=== PATIENT | female | born 1950 | race Caucasian/White ===

== ENCOUNTER → 2016-12-06 | Outpatient (CLI) | payer OTHER ==
[~2016-12-06] MED LIST: ATV5 PO; BROM0.0911 OPL; CALC500C3 PO; IBUP-1050 PO; PRED1SUS3 OPL; TIMO0.05 OPB
--- NOTE | 2016-12-06 10:42 | DIAGNOSTIC IMAGING REPORT ---
ABDOMEN COMPLETE (US) CLINICAL HISTORY: EPIGASTRIC PAIN; CHANGE IN BOWEL HABIT COMPARISON STUDY: No previous studies for comparison. FINDINGS: Evaluation the pancreas is limited. No definite pancreatic abnormalities are identified. There is 8 mm cyst within the right hepatic lobe. The liver appears otherwise normal. The gallbladder surgically absent. There is no ductal dilatation. The common bile duct measures 4 mm. The spleen measures 8.3 cm in length. No splenic masses are visualized. The right kidney measures 9.2 cm in length. The left kidney measures 9.6 cm in length. No renal masses were visualized. There is no hydronephrosis. There is no evidence of abdominal aortic dilatation. Inferior vena cava appear patent. IMPRESSION: 1. 8 mm right lobe hepatic cyst 2. Surgically absent gallbladder 3. No evidence of ductal dilatation. Electronically signed by: Bong Ponce M.D. 12/06/2016 10:41 AM Dictated Date/Time: 12/06/2016 10:39 AM
== END | disposition home or self-care (01) ==
LOC: C.ULTRBC 09:41
PROVIDERS: ATTEND Family Medicine
DX: R19.4 Change in bowel habit (principal); R10.13 Epigastric pain; Z92.3 Personal history of irradiation; K76.89 Other specified diseases of liver; Z90.49 Acquired absence of other specified parts of digestive tract

== ENCOUNTER → 2016-12-29 | Outpatient (CLI) | payer OTHER ==
[~2016-12-29] MED LIST changes: +OPTIRAY 320 IV PRN
[2016-12-29 11:41] LABS: HEMATOCRIT 43.8 % (37-47); MEAN CELL VOLUME 91.8 fL (80-100); MEAN CORPUSCULAR HEMOGLOBIN 30.6 pg (25-34); MEAN CORPUSCULAR HGB CONC 33.3 g/dl (32-36); MEAN PLATELET VOLUME 9.6 fL (7.4-10.4); PLATELET COUNT 292 K/uL (130-400); RED BLOOD COUNT 4.77 M/uL (4.2-5.4); WHITE BLOOD COUNT 5.24 K/uL (4.8-10.8)
[2016-12-29 12:08] LABS: ALB/GLOB RATIO 0.9 (0.9-2); ALKALINE PHOSPHATASE 132 U/L (45-117); ALT/SGPT 28 U/L (12-78); AST/SGOT 20 U/L (15-37); BLOOD UREA NITROGEN 18 mg/dl (7-18); BUN/CREATININE RATIO 24.4 (10-20); CALCIUM 9.5 mg/dl (8.5-10.1); CARBON DIOXIDE 29 mmol/L (21-32); CHLORIDE 107 mmol/L (98-107); CREATININE 0.73 mg/dl (0.60-1.20); GLUCOSE 95 mg/dl (70-99); SODIUM 141 mmol/L (136-145)
--- NOTE | 2016-12-29 12:44 | DIAGNOSTIC IMAGING REPORT ---
CT SCAN OF THE CHEST, ABDOMEN, AND PELVIS WITH IV CONTRAST CLINICAL HISTORY: Colon cancer. COMPARISON STUDY: Chest x-ray dated 09/23/2008. Abdominal ultrasound dated 12/06/2016. TECHNIQUE: Following the IV administration of 90 of Optiray 320, CT scan of the chest, abdomen, and pelvis was performed from the thoracic inlet to the proximal femora. Images are reviewed in the axial, sagittal, and coronal planes. IV contrast was administered without complication. Automated dose control exposure was utilized. CT DOSE: 895.49 mGy.cm FINDINGS: CHEST: Thyroid: Imaged portions of the thyroid gland are normal in size and attenuation. Thoracic aorta: The thoracic aorta is normal in caliber and demonstrates standard 3-vessel arch anatomy. No dissection is seen. Pulmonary vasculature: The pulmonary trunk is normal in caliber. There are no filling defects identified in the central pulmonary vessels to indicate pulmonary was. Note that this examination was not protocoled for evaluation of the pulmonary arteries. Heart: The heart is normal in size and configuration, and without pericardial effusion. There are scattered coronary artery calcifications. Lungs and pleural spaces: The lungs and pleural spaces are clear noting minimal bibasilar atelectasis. The trachea and central airways are patent. Mediastinum: There is no mediastinal lymphadenopathy. Alba: Clear. Axillae: There is no axillary lymphadenopathy. Bony thorax: The skeletal structures are osteopenic. No lytic or blastic lesions are identified. ABDOMEN AND PELVIS: Liver: The contrast-enhanced liver is normal in size, contour, and attenuation. There is no intrahepatic or ductal dilatation. The hepatic veins and portal veins are patent. Scattered subcentimeter hepatic hypodensities likely represent cysts but are too small for definitive characterization. Gallbladder: Surgically absent noting clips in the gallbladder fossa. Spleen: Normal in size and attenuation. Pancreas: Moderately atrophic and grossly unremarkable. Adrenal glands: Unremarkable. Kidneys: The contrast enhanced kidneys demonstrate mild cortical atrophy and are without hydronephrosis. The kidneys enhance symmetrically. Abdominal vasculature: The abdominal aorta is normal in course and caliber noting mild to moderate atherosclerotic calcification. Stomach and bowel: There is a large hiatal hernia, with the majority of the stomach located in the thoracic cavity. The duodenum is normal in configuration. There is no bowel obstruction. There is mild to moderate sigmoid diverticulosis without CT evidence of acute diverticulitis. The appendix is well-visualized and normal. Peritoneum: There is no intraperitoneal free air or abdominal ascites. There is a small fat-containing umbilical hernia. Lymphadenopathy: None. Pelvic viscera: The bladder is normal as visualized. The uterus is surgically absent. No adnexal lesion is seen. Surgical clips are present within the adnexa bilaterally. Skeletal structures: The skeletal structures are osteopenic. There is mild to moderate lumbosacral spondylosis. Grade 1 anterolisthesis is seen at L4-L5. No lytic or blastic lesions are seen. IMPRESSION: 1. There is no evidence of metastatic disease in the chest, abdomen, or pelvis. 2. The lungs are clear. 3. The patient's reported colon lesion is not visualized by CT. 4. Sigmoid diverticulosis without CT evidence of acute diverticulitis. 5. Large hiatal hernia with the majority of the stomach located in the thoracic cavity. 6. Additional findings as above. Electronically signed by: Anderson Gonzalez M.D. 12/29/2016 12:43 PM Dictated Date/Time: 12/29/2016 12:32 PM
== END | disposition home or self-care (01) ==
LOC: C.CTS 10:03
PROVIDERS: ATTEND Internal Medicine Gastroenterology
DX: C18.9 Malignant neoplasm of colon, unspecified (principal)

== ENCOUNTER → 2017-06-15 | Outpatient (CLI) | payer OTHER ==
[~2017-06-15] MED LIST changes: -OPTIRAY 320 IV PRN
[2017-06-15 17:42] LABS: HEMATOCRIT 42.3 % (37-47); MEAN CELL VOLUME 93.6 fL (80-100); MEAN CORPUSCULAR HGB CONC 33.1 g/dl (32-36); MEAN PLATELET VOLUME 9.8 fL (7.4-10.4); PLATELET COUNT 256 K/uL (130-400); RED BLOOD COUNT 4.52 M/uL (4.2-5.4); WHITE BLOOD COUNT 6.21 K/uL (4.8-10.8)
[2017-06-15 18:09] LABS: ALT/SGPT 37 U/L (12-78); BLOOD UREA NITROGEN 16 mg/dl (7-18); BUN/CREATININE RATIO 29.3 (10-20); CALCIUM 9.1 mg/dl (8.5-10.1); CARBON DIOXIDE 28 mmol/L (21-32); CHLORIDE 104 mmol/L (98-107); CREATININE 0.54 mg/dl (0.60-1.20); GLUCOSE 90 mg/dl (70-99); POTASSIUM 3.8 mmol/L (3.5-5.1); SODIUM 138 mmol/L (136-145)
[2017-06-15 18:20] LABS: ALB/GLOB RATIO 0.9 (0.9-2); ALKALINE PHOSPHATASE 124 U/L (45-117); AST/SGOT 26 U/L (15-37)
== END | disposition home or self-care (01) ==
LOC: C.LAB1850 17:00
PROVIDERS: ATTEND Family Medicine
DX: L65.9 Nonscarring hair loss, unspecified (principal); C18.7 Malignant neoplasm of sigmoid colon

== ENCOUNTER 2021-02-03 12:11 | Inpatient (IN) ==
[2021-02-03 15:12] LABS: Eosinophils # (auto) 0.01 K/uL (0-0.5); Eosinophils % (auto) 0.3 %; Hematocrit (blood only) 38.8 % (37-47); Hemoglobin 11.3 g/dL (12.0-16.0); Lymphocytes # (auto) 0.65 K/uL (1.2-3.4); Lymphocytes % (auto) 18.2 %; Mean Corpuscular Hemoglobin 20.5 pg (25-34); Mean Corpuscular Hgb Conc 29.1 g/dL (32-36); Mean Corpuscular Volume 70.4 fL (80-100); Monocytes # (auto) 0.51 K/uL (0.11-0.59); Monocytes % (auto) 14.2 %; Neutrophils # (auto) 2.41 K/uL (1.4-6.5); Neutrophils % (auto) 67.3 %; Platelet Count 451 K/uL (130-400); RDW Coefficient of Variation 20.2 % (11.5-14.5); RDW Standard Deviation 51.7 fL (36.4-46.3); Red Blood Count 5.51 M/uL (4.2-5.4); White Blood Count 3.58 K/uL (4.8-10.8)
[2021-02-03] MEDS ORDERED: ONDANSETRON INJ 2 MG/ML 2 ML VIAL IV STA (15:20)
[2021-02-03] MEDS: SODIUM CHLORIDE 0.9% 1000ML 1,000 ML IV SCH ×2 (15:26→23:08)
[2021-02-03 15:32] LABS: Alanine Aminotransferase 26 U/L (12-78); Albumin Level 3.6 gm/dl (3.4-5.0); Aspartate Aminotransferase 18 U/L (15-37); BUN Creatinine Ratio 22.5 (10-20); Blood Urea Nitrogen 19 mg/dl (7-18); Calcium 9.5 mg/dl (8.5-10.1); Carbon Dioxide 24 mmol/L (21-32); Chloride 105 mmol/L (98-107); Creatinine Clr Calc Pharmacy 59.2 ml/min; Est GFR (African American) 82.2 ml/min; Est GFR (Non-African American) 70.9 ml/min; Glucose 142 mg/dl (70-99); Lipase 63 U/L (73-393); Sodium 137 mmol/L (136-145)
--- NOTE | 2021-02-03 15:34 | Electrocardiogram Report ---
Test Reason : Blood Pressure : / mmHG Vent. Rate : 085 BPM Atrial Rate : 085 BPM P-R Int : 146 ms QRS Dur : 068 ms QT Int : 376 ms P-R-T Axes : 043 -20 047 degrees QTc Int : 447 ms Normal sinus rhythm Normal ECG When compared with ECG of 20-SEP-2006 18:42, No significant change was found Confirmed by Chad Ledesma ([id number]) on 02/03/2021 3:34:28 PM Referred By: REFERRED SELF Confirmed By:Chung Ledesma
[2021-02-03 15:36] LABS: Albumin Globulin Ratio 0.7 (0.9-2); Alkaline Phosphatase 153 U/L (45-117); Bilirubin,Total 1.3 mg/dl (0.2-1); Globulin 5.1 gm/dl (2.5-4.0); Phosphorus 2.6 mg/dl (2.5-4.9); Total Protein 8.7 gm/dl (6.4-8.2); Troponin I < 0.015 ng/ml (0-0.045)
[2021-02-03 15:50] LABS: Anisocytosis Present; Hypochromasia Present; Poikilocytosis Present; Polychromasia 1+
--- NOTE | 2021-02-03 15:51 | Emergency Department Note ---
History of Present Illness General Chief complaint: Diarrhea Stated complaint: DIARRHEA,CANT KEEP ANYTHING DOWN,LOWER ABD PAIN Time Seen by Provider: 02/03/21 14:15 Source: patient Mode of arrival: ambulatory Limitations: no limitations History of Present Illness Provider complaint: weakness, dehydration, vomiting Onset (ago): day(s) 4 Location: abdomen Radiation: non-radiation Severity: moderate Maximum Pain Intensity: 5 Quality: + constant Relieved By: + none Exacerbated By: + eating Associated symptoms: + loss of appetite, + malaise, + nausea/vomiting and + weakness This is a 70-year-old female presents emergency department complaining of abdominal pain, nausea, vomiting, and diarrhea. Patient states symptoms began on Tuesday. Patient states last week on Tuesday she underwent an EGD and sigmoidoscopy by Dr. Driver. Patient has a prior history of colon cancer and ileocolectomy remotely. Patient states following the procedure on Tuesday she had decreased p.o. intake and felt fatigued but did not have pain until she ate a larger meal on Tuesday. She states she frequently has diarrhea due to her prior surgery although the diarrhea has been more persistent and more watery over the last several days. She denies noting any black or bloody stools. She denies fevers or chills. Patient states over the last 3 days she has been unable to tolerate anything by mouth. Patient denies any recent change in medication or diet otherwise. No known sick contacts. Patient states pain in her abdomen feels central and is constant. Patient has not noticed any significant abdominal distention. Patient states she did tolerate a banana this morning which was the first thing she is kept down 3 days. She did have 2 episodes of diarrhea on arrival here. Pt seen during a time of high acuity and national emergency pandemic while wearing PPE. Home Medications Medication Instructions Recorded Confirmed Type cholestyramine (with sugar) 4 gram 1 ea PO QAM 02/03/21 02/03/21 History powder for susp in a packet lorazepam 1 mg tablet 1 mg PO TID PRN 02/03/21 02/03/21 History naproxen sodium 220 mg tablet 220 mg PO Q12H PRN 02/03/21 02/03/21 History (Aleve) timolol maleate 0.5 % eye drops 1 drp OPB DAILY 02/03/21 02/03/21 History Allergies Allergy/AdvReac Type Severity Reaction Status Date / Time codeine Allergy Severe SHORTNESS Verified 02/03/21 14:57 OF BREATH morphine Allergy Severe SHORTNESS Verified 02/03/21 14:57 OF BREATH benzalkonium chloride AdvReac Mild EYE Verified 02/03/21 14:57 IRRITATION AND REDNESS chocolate flavor AdvReac Mild causes Verified 02/03/21 14:57 sneezing travoprost AdvReac Mild EYE Verified 02/03/21 14:57 IRRITATION AND REDNESS Past Med/Surg History Surgical History H/O section H/O: hysterectomy History of appendectomy History of bowel resection History of cholecystectomy Social History Smoking Status: Never smoker Hx Alcohol Use: No Hx Substance Use: No Preferred Language: [place] Communication Ability: Effective 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 Beliefs That Will Affect Care: None Current Living Situation: Spouse Feels Safe at Home: Yes Assistive Devices: Glasses Review of Systems A total of 10 systems reviewed and were otherwise negative All systems reviewed & are unremarkable except as noted in HPI & below Physical Exam Vital Signs Vital Signs - 24 hr 02/03/21 12:16 02/03/21 14:39 02/03/21 15:26 Temperature 36.2 C L Temperature Source Temporal Artery Scan Pulse Rate 95 H 77 80 Pulse Rate from SpO2 Sensor 77 80 Respiratory Rate 20 14 24 Respiratory Effort / Characteristics Non-Labored Spontaneous Respiratory Depth Normal Respiratory Pattern Regular Blood Pressure 117/87 144/97 H Blood Pressure Mean 97 152 112 Pulse Oximetry 97 98 98 Oxygen Delivery Method Room Air Sepsis Recent Fever Within 48 Hours No Sepsis New/Unexplained Change in Mental Status No Sepsis Action Taken by Nursing No Action Required 02/03/21 16:31 02/03/21 17:01 Temperature Temperature Source Pulse Rate 84 85 Pulse Rate from SpO2 Sensor 84 84 Respiratory Rate 20 13 Respiratory Effort / Characteristics Respiratory Depth Respiratory Pattern Blood Pressure 154/85 H 148/65 H Blood Pressure Mean 108 92 Pulse Oximetry 98 97 Oxygen Delivery Method Sepsis Recent Fever Within 48 Hours Sepsis New/Unexplained Change in Mental Status Sepsis Action Taken by Nursing GENERAL: alert, well appearing, well nourished, no distress, non-toxic EYE EXAM: normal conjunctiva, PERRL and EOM's grossly intact OROPHARYNX: no exudate, no erythema, lips, buccal mucosa, and tongue normal and mucous membranes are moist NECK: supple, no nuchal rigidity, no adenopathy, non-tender LUNGS: Clear to auscultation. Normal chest wall mechanics, no w/r/r HEART: no murmurs, S1 normal and S2 normal ABDOMEN: abdomen soft, non-tender, normo-active bowel sounds, no masses, no rebound or guarding. Well healed surgical scar. BACK: Back is symmetrical on inspection and there is no deformity, no midline tenderness, no CVA tenderness. SKIN: no rashes and no bruising UPPER EXTREMITIES: upper extremities are grossly normal. FROM, nml pulses b/l. LOWER EXTREMITIES: No pitting edema. FROM, nml pulses b/l. NEURO EXAM: Normal sensorium, cranial nerves II-XII grossly intact, normal speech, no gross weakness of arms, no gross weakness of legs. Gross sensation intact. Course Course 1635: Updated pt on CT findings. 1640: DIsucssed with Delphine Grijalva PA-C with gen surg. 1655: Discussed with Delphine Grijalva PA-C again, would like medicine to admit and NG tube placed. 1715: Discussed with hospitalist. Administered Medications Famotidine 20 mg/ Syringe 5 mls @ 2.5 mls/min IV Q12H ROSAURA Stop: 03/05/21 20:59 Last Admin: 02/03/21 21:32 Dose: 2.5 mls/min Documented by: [id number] Potassium Chloride/Sodium Chloride (Normal Saline W/20 Meq Kcl) 20 meq in 1,000 mls @ 100 mls/hr IV .Q10H ROSAURA Stop: 03/05/21 23:14 Last Admin: 02/03/21 23:56 Dose: 100 mls/hr Documented by: [id number] Ketorolac Tromethamine (Ketorolac Tromethamine 15 Mg/Ml Vial) 15 mg IV Q6H PRN PRN Reason: Moderate Pain Stop: 02/08/21 20:45 Last Admin: 02/03/21 21:46 Dose: 15 mg Documented by: [id number] Discontinued Medications Sodium Chloride (Nss 1000ml) 1,000 mls @ 250 mls/hr IV .Q4H ROSAURA Stop: 03/05/21 14:44 Last Admin: 02/03/21 23:08 Dose: Not Given Documented by: [id number] Infusion: 02/03/21 19:52 Dose: 250 mls/hr Documented by: [id number] Admin: 02/03/21 15:26 Dose: 250 mls/hr Documented by: [id number] Prochlorperazine (Compazine) 1 mls @ 1 mls/min IV ONE ONE Stop: 02/03/21 16:43 Last Admin: 02/03/21 17:04 Dose: 1 mls/min Documented by: [id number] Acetaminophen (Ofirmev) 1,000 mg in 100 mls @ 400 mls/hr IV NOW STA Stop: 02/03/21 17:17 Last Infusion: 02/03/21 17:23 Dose: 400 mls/hr Documented by: [id number] Admin: 02/03/21 17:08 Dose: 400 mls/hr Documented by: [id number] Piperacillin Sod/Tazobactam (Sod 4.5 gm/ Dextrose) 120 mls @ 240 mls/hr IV ONE ONE; Protocol Stop: 02/03/21 21:29 Last Infusion: 02/03/21 22:19 Dose: 0 mls/hr Documented by: [id number] Admin: 02/03/21 21:32 Dose: 240 mls/hr Documented by: [id number] Ondansetron HCl (Ondansetron Inj 2 Mg/Ml 2 Ml Vial) 4 mg IV NOW STA Stop: 02/03/21 15:21 Last Admin: 02/03/21 15:26 Dose: 4 mg Documented by: [id number] Medical Decision Making Differential Diagnosis Differential diagnoses includes but is not limited to gastritis, peptic ulcer disease, GERD, gallbladder disease, pancreatitis, small bowel obstruction, acute coronary syndrome, pericarditis, ischemic bowel, irritable bowel disease, irritable bowel syndrome, appendicitis, diverticulitis, malignancy, hernia, urinary tract infection, torsion, [/ectopic (if female)], perforation, trauma, infectious. Medical Records Attestation: I reviewed the patient's medical records. Home Medications Current Medication List: was personally reviewed by me Laboratory Data Attestation: I reviewed the patient's lab results. Result diagrams: 02/03/21 15:02 02/03/21 15:02 Lab Results 02/03/21 02/03/21 Range/Units 15:02 15:02 WBC 3.58 L (4.8-10.8) K/uL RBC 5.51 H (4.2-5.4) M/uL Hgb 11.3 L (12.0-16.0) g/dL Hct 38.8 (37-47) % MCV 70.4 L (80-100) fL MCH 20.5 L (25-34) pg MCHC 29.1 L (32-36) g/dL RDW Std Deviation 51.7 H (36.4-46.3) fL RDW Coeff of Pavan 20.2 H (11.5-14.5) % Plt Count 451 H (130-400) K/uL MPV 9.0 (7.4-10.4) fL Immature Gran % (Auto) 0.0 % Neut % (Auto) 67.3 % Lymph % (Auto) 18.2 % Carlton % (Auto) 14.2 % Eos % (Auto) 0.3 % Baso % (Auto) 0.0 % Neut # (Auto) 2.41 (1.4-6.5) K/uL Lymph # (Auto) 0.65 L (1.2-3.4) K/uL Carlton # (Auto) 0.51 (0.11-0.59) K/uL Eos # (Auto) 0.01 (0-0.5) K/uL Baso # (Auto) 0.00 (0-0.2) K/uL Immature Gran # (Auto) 0.00 (0.00-0.02) K/uL Polychromasia 1+ Hypochromasia Present Poikilocytosis Present Anisocytosis Present Sodium 137 (136-145) mmol/L Potassium 4.0 (3.5-5.1) mmol/L Chloride 105 (98-107) mmol/L Carbon Dioxide 24 (21-32) mmol/L Anion Gap 8.0 (3-11) BUN 19 H (7-18) mg/dl Creatinine 0.83 (0.6-1.2) mg/dl Est Cr Clr Drug Dosing 59.2 ml/min Est GFR ( Amer) 82.2 ml/min Est GFR (Non-Af Amer) 70.9 ml/min BUN/Creatinine Ratio 22.5 H (10-20) Glucose 142 H (70-99) mg/dl Calcium 9.5 (8.5-10.1) mg/dl Phosphorus 2.6 (2.5-4.9) mg/dl Magnesium 2.0 (1.8-2.4) mg/dl Total Bilirubin 1.3 H (0.2-1) mg/dl AST 18 (15-37) U/L ALT 26 (12-78) U/L Alkaline Phosphatase 153 H (45-117) U/L Troponin I < 0.015 (0-0.045) ng/ml Total Protein 8.7 H (6.4-8.2) gm/dl Albumin 3.6 (3.4-5.0) gm/dl Globulin 5.1 H (2.5-4.0) gm/dl Albumin/Globulin Ratio 0.7 L (0.9-2) Lipase 63 L (73-393) U/L Imaging Data Radiologist's Impression: Abdomen/Pelvis CT 02/03/21 14:48 CT SCAN OF THE ABDOMEN AND PELVIS WITHOUT CONTRAST CLINICAL HISTORY: abd pain, n/v/d COMPARISON STUDY: December 29, 2016 TECHNIQUE: CT scan of the abdomen and pelvis was performed from the lung bases to the proximal femurs. Images are reviewed in the axial, sagittal, and coronal planes. IV contrast was not administered for this examination. A dose lowering technique was utilized adhering to the principles of ALARA. CT DOSE: 542.28 mGy.cm FINDINGS: Lower chest: Large hiatal hernia, slightly worsened since prior with compressive atelectasis of surrounding lung parenchyma. Interval development of 5 mm pulmonary nodule within subpleural aspect of the left lower lobe (09/06) Liver: The unenhanced liver is normal in size, contour, and attenuation. There is no intrahepatic biliary ductal dilatation. Gallbladder: Is surgically absent Spleen: Normal in size and attenuation. Pancreas: Unremarkable. Adrenal glands: Unremarkable. Kidneys: The unenhanced kidneys are normal in size without hydronephrosis. There is no contour deforming renal mass lesion. No renal calculi are identified. Bowel: Status post partial colectomy. Anastomosis is seen within left lower quadrant (3/160) and shows collapsed lumen with proximal diffuse dilatation of the small bowel loops and multiple areas of gas fluid level. Loops of small bowel measure up to 4.5 cm in diameter. Peritoneum: No free intra-abdominal gas is seen. Diffuse mesenteric edema. No evidence of ascites. Vasculature: Abdominal aorta is normal in caliber with scattered calcifications of its wall. Adenopathy: None. Pelvic viscera: Urinary bladder is partially decompressed which limits evaluation. Uterus is surgically absent. Skeletal structures: Mild osteopenia. Multilevel degenerative changes of the spine. Mild anterolisthesis of L4 on L5. IMPRESSION: 1. High-grade small bowel obstruction. Transition zone is seen within site of surgical anastomosis within left lower quadrant. No free intra-abdominal gas or ascites seen however there is diffuse mesenteric edema. Findings will be sent to emergency Department. 2. Large hiatal hernia. 3. Atherosclerosis. 4. Mild anterolisthesis of L4 on L5. 5. Status post hysterectomy. 6. 5 mm pulmonary nodule within left base. Further evaluation with CT of the chest without IV contrast on nonemergency basis is suggested. ACT 112: Positive. There are findings on this exam that require communication between the performing entity and the patient following Patient Test Result Inf ormation Act ([place] Act 112) guidelines. The above report was generated using voice recognition software. It may contain grammatical, syntax or spelling errors. Electronically signed by: Jovita Alan DO 02/03/2021 4:23 PM ECG Data Attestation: I personally reviewed and interpreted this ECG as follows: Indication: + abdominal pain Rate (beats per minute): 85 Rhythm: + normal sinus ECG Intervals/blocks: + Normal QRS and + Normal QT ECG [place]: + Normal ECG ST segments: + Normal ST segments MDM Narrative This is a 70-year-old female with a prior history of ileal colectomy due to colon cancer who presents due to concern for nausea, vomiting, diarrhea, worsening abdominal pain over the last 3 to 4 days. Patient did undergo GI evaluation last week with EGD and sigmoidoscopy which were reassuring. And patient initially felt well until symptoms began Tuesday. Labs reassuring here, however CT imaging revealed a high-grade bowel obstruction. Patient was afebrile here. Patient was also given several medications for nausea as well as medication for pain. Case was discussed with general surgery on-call. They requested an NG tube be placed and the hospitalist admit the patient primarily. Patient was updated on all results and plan after discussion with general surgery at bedside and verbalized understanding. Patient was hemodynamically stable. An order was placed for continuous cardiac monitoring. The monitor shows a rate of _88__ with _normal sinus_ rhythm. Impression & Plan Abdominal pain, Small bowel obstruction, Nausea vomiting and diarrhea Discharge Plan Visit Data Chief Complaint: Diarrhea Stated Complaint: DIARRHEA,CANT KEEP ANYTHING DOWN,LOWER ABD PAIN ED Provider: Vickie Mendiola Discharge Problem: Abdominal pain, Small bowel obstruction, Nausea vomiting and diarrhea Patient Disposition: Admitted As Inpatient Condition: Fair Discharge Instructions Interventions: ED Discharge Assessment Last Done: 02/03/21 20:21
--- NOTE | 2021-02-03 16:24 | CT Scan Report ---
CT SCAN OF THE ABDOMEN AND PELVIS WITHOUT CONTRAST CLINICAL HISTORY: abd pain, n/v/d COMPARISON STUDY: December 29, 2016 TECHNIQUE: CT scan of the abdomen and pelvis was performed from the lung bases to the proximal femurs . Images are reviewed in the axial, sagittal, and coronal planes. IV contrast was not administered fo r this examination. A dose lowering technique was utilized adhering to the principles of ALARA. CT DOSE: 542.28 mGy.cm FINDINGS: Lower chest: Large hiatal hernia, slightly worsened since prior with compressive atelectasis of surro unding lung parenchyma. Interval development of 5 mm pulmonary nodule within subpleural aspect of the left lower lobe (3/13) Liver: The unenhanced liver is normal in size, contour, and attenuation. There is no intrahepatic woo iary ductal dilatation. Gallbladder: Is surgically absent Spleen: Normal in size and attenuation. Pancreas: Unremarkable. Adrenal glands: Unremarkable. Kidneys: The unenhanced kidneys are normal in size without hydronephrosis. There is no contour deform ing renal mass lesion. No renal calculi are identified. Bowel: Status post partial colectomy. Anastomosis is seen within left lower quadrant (3/160) and show s collapsed lumen with proximal diffuse dilatation of the small bowel loops and multiple areas of gas fluid level. Loops of small bowel measure up to 4.5 cm in diameter. Peritoneum: No free intra-abdominal gas is seen. Diffuse mesenteric edema. No evidence of ascites. Vasculature: Abdominal aorta is normal in caliber with scattered calcifications of its wall. Adenopathy: None. Pelvic viscera: Urinary bladder is partially decompressed which limits evaluation. Uterus is surgical ly absent. Skeletal structures: Mild osteopenia. Multilevel degenerative changes of the spine. Mild anterolisthe sis of L4 on L5. IMPRESSION: 1. High-grade small bowel obstruction. Transition zone is seen within site of surgical anastomosis w ithin left lower quadrant. No free intra-abdominal gas or ascites seen however there is diffuse mesen teric edema. Findings will be sent to emergency Department. 2. Large hiatal hernia. 3. Atherosclerosis. 4. Mild anterolisthesis of L4 on L5. 5. Status post hysterectomy. 6. 5 mm pulmonary nodule within left base. Further evaluation with CT of the chest without IV contra st on nonemergency basis is suggested. ACT 112: Positive. There are findings on this exam that require communication between the performing entity and the patient following Patient Test Result Information Act ([place] Act 112) guidelines. The above report was generated using voice recognition software. It may contain grammatical, syntax o r spelling errors. Electronically signed by: Jovita Alan DO 02/03/2021 4:23 PM
[2021-02-03] MEDS ORDERED: PROCHLORPERAZINE 1 ML IV ONE (16:42)
[2021-02-03] MEDS ORDERED: ACETAMINOPHEN 1,000 MG/100 ML VIAL IV STA (17:03)
--- NOTE | 2021-02-03 17:23 | History & Physical Report ---
Date of Service February 03, 2021 Assessment & Plan (1) Small bowel obstruction: Plan: High-grade small bowel obstruction- Transition zone within site of surgical anastomosis within the left lower quadrant Diffuse mesenteric edema noted NPO NG tube to low intermittent suction has been ordered Acetaminophen 1 g IV every 8 hours as needed mild pain or fever Toradol 15 mg IV every 6 hours as needed moderate pain NSS + KCl 20 mEq at 100 mils per hour Famotidine 20 mg IV every 12 hours Zosyn 4.5 g IV every 8 hours General surgical consult History of Present Illness Chief Complaint: The patient presents to the emergency department with 2 days of progressively worsening epigastric and periumbilical abdominal pain with nausea, vomiting and diarrhea Primary Care Provider: Curt Sanches MD The patient is a 70-year-old female with a past medical history including previous bowel surgery, with records not obtainable due to PDF dysfunction. She reports that the pain is gradually worsened over the past 2 days, and when she tries to eat anything resulted in nausea and vomiting. She has had persistent diarrhea during this interval as well. She denies any fevers or chills. Allergies Allergy/AdvReac Type Severity Reaction Status Date / Time codeine Allergy Severe SHORTNESS Verified 02/03/21 14:57 OF BREATH morphine Allergy Severe SHORTNESS Verified 02/03/21 14:57 OF BREATH benzalkonium chloride AdvReac Mild EYE Verified 02/03/21 14:57 IRRITATION AND REDNESS chocolate flavor AdvReac Mild causes Verified 02/03/21 14:57 sneezing travoprost AdvReac Mild EYE Verified 02/03/21 14:57 IRRITATION AND REDNESS Home Medications Medication Instructions Recorded Confirmed Type cholestyramine (with sugar) 4 gram 1 ea PO QAM 02/03/21 02/03/21 History powder for susp in a packet lorazepam 1 mg tablet 1 mg PO TID PRN 02/03/21 02/03/21 History naproxen sodium 220 mg tablet 220 mg PO Q12H PRN 02/03/21 02/03/21 History (Aleve) timolol maleate 0.5 % eye drops 1 drp OPB DAILY 02/03/21 02/03/21 History Past Med/Surg History Social History Smoking Status: Never smoker Preferred Language: Maldivian Feels Safe at Home: Yes Review of Systems Review of Systems: The patient denies chest pain, palpitations, shortness of breath, dyspnea on exertion, cough, lower extremity swelling, sore throat, fevers, chills, sweats, blood in urine or stool, dysuria, urinary frequency or urgency, lightheadedness, dizziness, headache, memory loss, loss of consciousness, rash, abnormal bruising or bleeding, imbalance, focal or generalized weakness, numbness or tingling in arms or legs, generalized arthralgias or myalgias, back or neck pain, or night sweats. The review of systems is otherwise negative other than for that already noted above, and at least 10 systems have been reviewed. Physical Exam Physical Exam: The patient is awake, alert and oriented 3, well developed and well nourished, normocephalic and atraumatic, lying in bed and in mild distress secondary to abdominal discomfort HEENT--PERRL, EOMI, mucous membranes and oropharynx dry. Neck--supple. No JVD. No bruits. Thyroid normal, trachea midline, no adenopathy. Heart--normal S1 and S2. No murmurs, rubs or gallops. Lungs--clear bilaterally, no respiratory distress, no accessory muscle use. Abdomen--absent bowel sounds. Nondistended. Generally tender Extremities--no cyanosis or clubbing. No edema. Dermatologic--normal skin turgor, normal color, no abnormal lymph nodes, no rash. Neurologic--cranial nerves II through XII grossly intact. Rheumatologic--normal range of motion. Psychiatric--normal affect. Results & Data Results & Data ([facility]) Vital Signs (Past 12 Hours) Vital Signs Temp Pulse Resp BP Pulse Ox 02/03/21 12:16 97.2 F L 95 H 20 117/87 97 Laboratory Results Laboratory Results WBC 3.58 K/uL (4.8-10.8) L 02/03/21 15:02 RBC 5.51 M/uL (4.2-5.4) H 02/03/21 15:02 Hgb 11.3 g/dL (12.0-16.0) L 02/03/21 15:02 Hct 38.8 % (37-47) 02/03/21 15: MCV 70.4 fL (80-100) L 02/03/21 15:02 MCH 20.5 pg (25-34) L 02/03/21 15:02 MCHC 29.1 g/dL (32-36) L 02/03/21 15:02 RDW Std Deviation 51.7 fL (36.4-46.3) H 02/03/21 15:02 RDW Coeff of Pavan 20.2 % (11.5-14.5) H 02/03/21 15:02 Plt Count 451 K/uL (130-400) H 02/03/21 15:02 MPV 9.0 fL (7.4-10.4) 02/03/21 15:02 Immature Gran % (Auto) 0.0 % 02/03/21 15:02 Neut % (Auto) 67.3 % 02/03/21 15:02 Lymph % (Auto) 18.2 % 02/03/21 15:02 Weber % (Auto) 14.2 % 02/03/21 15:02 Eos % (Auto) 0.3 % 02/03/21 15:02 Baso % (Auto) 0.0 % 02/03/21 15:02 Neut # (Auto) 2.41 K/uL (1.4-6.5) 02/03/21 15:02 Lymph # (Auto) 0.65 K/uL (1.2-3.4) L 02/03/21 15:02 Weber # (Auto) 0.51 K/uL (0.11-0.59) 02/03/21 15:02 Eos # (Auto) 0.01 K/uL (0-0.5) 02/03/21 15:02 Baso # (Auto) 0.00 K/uL (0-0.2) 02/03/21 15:02 Immature Gran # (Auto) 0.00 K/uL (0.00-0.02) 02/03/21 15:02 Polychromasia 1+ 02/03/21 15:02 Hypochromasia Present 02/03/21 15:02 Poikilocytosis Present 02/03/21 15:02 Anisocytosis Present 02/03/21 15:02 Sodium 137 mmol/L (136-145) 02/03/21 15:02 Potassium 4.0 mmol/L (3.5-5.1) 02/03/21 15:02 Chloride 105 mmol/L (98-107) 02/03/21 15:02 Carbon Dioxide 24 mmol/L (21-32) 02/03/21 15:02 Anion Gap 8.0 (3-11) 02/03/21 15:02 BUN 19 mg/dl (7-18) H 02/03/21 15:02 Creatinine 0.83 mg/dl (0.6-1.2) 02/03/21 15:02 Est Cr Clr Drug Dosing 59.2 ml/min 02/03/21 15:02 Est GFR ( Amer) 82.2 ml/min 02/03/21 15:02 Est GFR (Non-Af Amer) 70.9 ml/min 02/03/21 15:02 BUN/Creatinine Ratio 22.5 (10-20) H 02/03/21 15:02 Glucose 142 mg/dl (70-99) H 02/03/21 15:02 Calcium 9.5 mg/dl (8.5-10.1) 02/03/21 15:02 Phosphorus 2.6 mg/dl (2.5-4.9) 02/03/21 15:02 Magnesium 2.0 mg/dl (1.8-2.4) 02/03/21 15:02 Total Bilirubin 1.3 mg/dl (0.2-1) H 02/03/21 15:02 AST 18 U/L (15-37) 02/03/21 15:02 ALT 26 U/L (12-78) 02/03/21 15:02 Alkaline Phosphatase 153 U/L (45-117) H 02/03/21 15:02 Troponin I < 0.015 ng/ml (0-0.045) 02/03/21 15:02 Total Protein 8.7 gm/dl (6.4-8.2) H 02/03/21 15:02 Albumin 3.6 gm/dl (3.4-5.0) 02/03/21 15:02 Globulin 5.1 gm/dl (2.5-4.0) H 02/03/21 15:02 Albumin/Globulin Ratio 0.7 (0.9-2) L 02/03/21 15:02 Lipase 63 U/L (73-393) L 02/03/21 15:02 Impressions Abdomen/Pelvis CT 02/03/21 14:48 CT SCAN OF THE ABDOMEN AND PELVIS WITHOUT CONTRAST CLINICAL HISTORY: abd pain, n/v/d COMPARISON STUDY: December 29, 2016 TECHNIQUE: CT scan of the abdomen and pelvis was performed from the lung bases to the proximal femurs. Images are reviewed in the axial, sagittal, and coronal planes. IV contrast was not administered for this examination. A dose lowering technique was utilized adhering to the principles of ALARA. CT DOSE: 542.28 mGy.cm FINDINGS: Lower chest: Large hiatal hernia, slightly worsened since prior with compressive atelectasis of surrounding lung parenchyma. Interval development of 5 mm pulmonary nodule within subpleural aspect of the left lower lobe (3/13) Liver: The unenhanced liver is normal in size, contour, and attenuation. There is no intrahepatic biliary ductal dilatation. Gallbladder: Is surgically absent Spleen: Normal in size and attenuation. Pancreas: Unremarkable. Adrenal glands: Unremarkable. Kidneys: The unenhanced kidneys are normal in size without hydronephrosis. There is no contour deforming renal mass lesion. No renal calculi are identified. Bowel: Status post partial colectomy. Anastomosis is seen within left lower quadrant (3/160) and shows collapsed lumen with proximal diffuse dilatation of the small bowel loops and multiple areas of gas fluid level. Loops of small bowel measure up to 4.5 cm in diameter. Peritoneum: No free intra-abdominal gas is seen. Diffuse mesenteric edema. No evidence of ascites. Vasculature: Abdominal aorta is normal in caliber with scattered calcifications of its wall. Adenopathy: None. Pelvic viscera: Urinary bladder is partially decompressed which limits evaluation. Uterus is surgically absent. Skeletal structures: Mild osteopenia. Multilevel degenerative changes of the spine. Mild anterolisthesis of L4 on L5. IMPRESSION: 1. High-grade small bowel obstruction. Transition zone is seen within site of surgical anastomosis within left lower quadrant. No free intra-abdominal gas or ascites seen however there is diffuse mesenteric edema. Findings will be sent to emergency Department. 2. Large hiatal hernia. 3. Atherosclerosis. 4. Mild anterolisthesis of L4 on L5. 5. Status post hysterectomy. 6. 5 mm pulmonary nodule within left base. Further evaluation with CT of the chest without IV contrast on nonemergency basis is suggested. ACT 112: Positive. There are findings on this exam that require communication between the performing entity and the patient following Patient Test Result Information Act ([place] Act 112) guidelines. The above report was generated using voice recognition software. It may contain grammatical, syntax or spelling errors. Electronically signed by: Jovita Alan DO 02/03/2021 4:23 PM Code Status & VTE Plan Code Status Full code VTE Prophylaxis Plan VTE Prophylaxis will be ordered: Yes PG Care Time/CCT Total # of Minutes Spent Total Time Spent with Patient: Total time spent is greater than 50% in coordination of care (as documented) at patient's floor/unit and/or counseling patient: Coding Level of Care Code 61697 Initial Inpt Care Lvl 2 Diagnoses Small bowel obstruction K56.609
--- NOTE | 2021-02-03 17:31 | Surgery Consultation ---
Date of Consultation February 03, 2021 Assessment & Plan (1) Small bowel obstruction: This is a 70yF with a history of colon ca s/p ileocecectomy 2017 and endometrial cancer s/p hysterectomy in 2006 who presents to the [facility] ED on 02/03/21 with complaints of abdominal pain, nausea/vomiting and diarrhea since Tuesday. Workup in the ER with a CT a/p revealed high-grade small bowel obstruction. Transition zone is seen within site of surgical anastomosis within left lower quadrant. She also has a large hiatal hernia. Patient has a history of multiple abdominal surgeries as detailed in HPI including an ileocecectomy for cancer in 2017. Labs reveal a WBC 3.5, Cr: 0.8. On examination patient's ab domen is soft, non distended, with tenderness to palpation appreciated in the mid/central abdomen. Based on patient's imaging, history, and assessment we would recommend placing an NGT as patient has had nausea/vomiting daily since Tuesday. Keep NPO with IVF, and NGT to [facility]. Will order a KUB for tomorrow morning for further assessment. Hopefully patient can get by with conservative measures. No plans for acute surgical intervention at this time. Appreciate hospitalists admitting patient. We will continue to follow along closely. 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 Patient reports a history of EGD/Colonoscopy with [facility] last Tuesday for routine surveillance. She says some biopsies were taken, but thus far she is aware that the scopes were overall unremarkable. Since then patient has had a decrease of appetite and fatigue. Starting this past Tuesday she developed daily nausea/vomiting and could not keep any food down. She has a history of chronic diarrhea s/p ileocecectomy, but says it has worsened over the past few days up to 10x/day. She reports a dull pain in her mid abdomen, rating the pain a 6/10 in severity. In the ER patient underwent a CT a/p that revealed a high-grade small bowel obstruction. Transition zone is seen within site of surgical anastomosis within left lower quadrant. Patient denies a history of SBO in the past. Her past abdominal surgical history includes the ileocecectomy, hysterectomy, , cholecystectomy. Patient denies any fevers, chills, CP/SOB. She reports she is passing flatus and continues to pass loose stool today. She last ate a banana this AM. Her last bout of emesis was also today. Allergies Allergy/AdvReac Type Severity Reaction Status Date / Time codeine Allergy Severe SHORTNESS Verified 02/03/21 14:57 OF BREATH morphine Allergy Severe SHORTNESS Verified 02/03/21 14:57 OF BREATH benzalkonium chloride AdvReac Mild EYE Verified 02/03/21 14:57 IRRITATION AND REDNESS chocolate flavor AdvReac Mild causes Verified 02/03/21 14:57 sneezing travoprost AdvReac Mild EYE Verified 02/03/21 14:57 IRRITATION AND REDNESS Home Medications Medication Instructions Recorded Confirmed Type cholestyramine (with sugar) 4 gram 1 ea PO QAM 02/03/21 02/03/21 History powder for susp in a packet lorazepam 1 mg tablet 1 mg PO TID PRN 02/03/21 02/03/21 History naproxen sodium 220 mg tablet 220 mg PO Q12H PRN 02/03/21 02/03/21 History (Aleve) timolol maleate 0.5 % eye drops 1 drp OPB DAILY 02/03/21 02/03/21 History Patient History Surgical History H/O section H/O: hysterectomy History of appendectomy History of bowel resection History of cholecystectomy Social History Smoking Status: Never smoker Hx Alcohol Use: No Hx Substance Use: No Preferred Language: [place] Communication Ability: Effective Travograph Operator Required: No Beliefs That Will Affect Care: None Current Living Situation: Spouse Feels Safe at Home: Yes Assistive Devices: Glasses Review of Systems Constitutional: + anorexia; no fever and no chills Respiratory: no dyspnea Cardiovascular: no chest pain Gastrointestinal: + abdominal pain, + nausea, + vomiting and + diarrhea/loose stools; no bloating and no blood in stools Physical Exam Physical Exam: awake/alert Respiratory: no respiratory distress Gastrointestinal (Abdomen): Inspection/Auscultation: + abdominal surgical scar (infraumbilical midline scar & laparoscopic scars from prior surg hx.); abdomen not distended Percussion/Palpation: + abdomen tender (tender to palpation in central abdomen) and abdomen soft; no guarding and abdomen not firm Results & Data ([facility]) Vital Signs (Past 12 Hours) Vital Signs Temp Pulse Resp BP Pulse Ox 02/03/21 17:01 85 13 148/65 H 97 02/03/21 16:31 84 20 154/85 H 98 02/03/21 15:26 80 24 144/97 H 98 02/03/21 14:39 77 14 98 02/03/21 12:16 36.2 C L 95 H 20 117/[address] SCAN OF THE ABDOMEN AND PELVIS WITHOUT CONTRAST CLINICAL HISTORY: abd pain, n/v/d COMPARISON STUDY: December 29, 2016 TECHNIQUE: CT scan of the abdomen and pelvis was performed from the lung bases to the proximal femurs. Images are reviewed in the axial, sagittal, and coronal planes. IV contrast was not administered for this examination. A dose lowering technique was utilized adhering to the principles of ALARA. CT DOSE: 542.28 mGy.cm FINDINGS: Lower chest: Large hiatal hernia, slightly worsened since prior with compressive atelectasis of surrounding lung parenchyma. Interval development of 5 mm pulmonary nodule within subpleural aspect of the left lower lobe (/13) Liver: The unenhanced liver is normal in size, contour, and attenuation. There is no intrahepatic biliary ductal dilatation. Gallbladder: Is surgically absent Spleen: Normal in size and attenuation. Pancreas: Unremarkable. Adrenal glands: Unremarkable. Kidneys: The unenhanced kidneys are normal in size without hydronephrosis. There is no contour deforming renal mass lesion. No renal calculi are identified. Bowel: Status post partial colectomy. Anastomosis is seen within left lower quadrant (3/160) and shows collapsed lumen with proximal diffuse dilatation of the small bowel loops and multiple areas of gas fluid level. Loops of small bowel measure up to 4.5 cm in diameter. Peritoneum: No free intra-abdominal gas is seen. Diffuse mesenteric edema. No evidence of ascites. Vasculature: Abdominal aorta is normal in caliber with scattered calcifications of its wall. Adenopathy: None. Pelvic viscera: Urinary bladder is partially decompressed which limits evaluation. Uterus is surgically absent. Skeletal structures: Mild osteopenia. Multilevel degenerative changes of the spine. Mild anterolisthesis of L4 on L5. IMPRESSION: 1. High-grade small bowel obstruction. Transition zone is seen within site of surgical anastomosis within left lower quadrant. No free intra-abdominal gas or ascites seen however there is diffuse mesenteric edema. Findings will be sent to emergency Department. 2. Large hiatal hernia. 3. Atherosclerosis. 4. Mild anterolisthesis of L4 on L5. 5. Status post hysterectomy. 6. 5 mm pulmonary nodule within left base. Further evaluation with CT of the chest without IV contrast on nonemergency basis is suggested. ACT 112: Positive. There are findings on this exam that require communication between the performing entity and the patient following Patient Test Result Information Act ([place] Act 112) guidelines. The above report was generated using voice recognition software. It may contain grammatical, syntax or spelling errors. Electronically signed by: Jovita Alan DO 02/03/2021 4:23 PM PG Care Time/CCT Total # of Minutes Spent Total Time Spent with Patient: Total time spent is greater than 50% in coordination of care (as documented) at patient's floor/unit and/or counseling patient: Coding Level of Care Code 26375 Initial Inpt Care Lvl 2 Diagnoses Small bowel obstruction K56.609
--- NOTE | 2021-02-03 18:21 | XRay Report ---
XR KUB/Abdomen 1 view CLINICAL HISTORY: NG placement COMPARISON STUDY: No previous studies for comparison. FINDINGS: Tip of gastric tube is projecting to the anatomical region of the mid-lower mediastinum, could be wit hin large hiatal hernia. Fenestrated side-port is seen at the level of aortic arch. Multiple dilated loops of small bowel are seen. IMPRESSION: 1. Tip and fenestrated side-port of gastric tube are above the diaphragmatic level. Repositioning ap proximately 16 cm forward is recommended. ACT 112: Negative or not required by law. The above report was generated using voice recognition software. It may contain grammatical, syntax o r spelling errors. Electronically signed by: Jovita Alan DO 02/03/2021 6:20 PM
[2021-02-03] MEDS ORDERED: ACETAMINOPHEN 1000 MG/100 ML IV IV PRN (20:46)
[2021-02-03] MEDS ORDERED: ONDANSETRON INJ 2 MG/ML 2 ML VIAL IV PRN (20:46)
[2021-02-03] MEDS ORDERED: PIPERACILL/TAZOBAC CONSULT ACTIVE PRN (20:46)
[2021-02-03] MEDS ORDERED: PIPERACILLIN/TAZOBACTAM 4.5 GM in DEXTROSE 5% 100 ML IV ONE (21:00)
[2021-02-03] MEDS: FAMOTIDINE 20 MG in SYRINGE 3 ML IV SCH (21:32)
--- NOTE | 2021-02-03 21:43 | XRay Report ---
XR KUB/Abdomen 1 view CLINICAL HISTORY: ng tube placement COMPARISON STUDY: February 03, 2021 at 5:34 hours FINDINGS: Interval repositioning of gastric tube. Tip is seen below level of hemidiaphragm however fenestrated side-port is still above level of hemidiaphragm. Repositioning, approximately 7 cm forward is recomme nded. Multiple gaseous dilatation of small bowel loops appears similar to prior study. IMPRESSION: 1. Fenestrated side-port of gastric tube is seen above level of hemidiaphragm. ACT 112: Negative or not required by law. The above report was generated using voice recognition software. It may contain grammatical, syntax o r spelling errors. Electronically signed by: Jovita Alan DO 02/03/2021 9:42 PM
[2021-02-03] MEDS: KETOROLAC TROMETHAMINE 15 MG/ML VIAL IV PRN (21:46)
[2021-02-03] MEDS: NSS + 20MEQ KCL 20 MEQ/1,000 ML BAG IV SCH (23:56)
[2021-02-04] MEDS: PIPERACILLIN/TAZOBACTAM 3.375 GM in DEXTROSE 5% 100 ML IV SCH ×2 (01:38→09:55)
[2021-02-04] MEDS: KETOROLAC TROMETHAMINE 15 MG/ML VIAL IV PRN ×3 (05:48→19:29)
--- NOTE | 2021-02-04 07:02 | XRay Report ---
KUB HISTORY: Status post placement of an enteric tube NGT placement COMPARISON: KUB 02/03/2021, CT 02/03/2021 FINDINGS: Hiatal hernia. Surgical clips of the abdominal right upper quadrant. Persistent small bowel obstruction with dilated air-filled loops measuring up to 4.3 cm, unchanged from comparison. Distal tip of enteric tube projects over the abdominal left upper quadrant especially location of the gastri c body. Side port projects over the gastroesophageal junction. No urolith. No acute fracture identifi ed. No pneumatosis or pneumoperitoneum. IMPRESSION: 1. Unchanged appearance of the persistent small bowel obstruction. 2. Distal tip of enteric tube projects over the gastric body. 3. Hiatal hernia. ACT 112: Negative or not required by law. The above report was generated using voice recognition software. It may contain grammatical, syntax o r spelling errors. Electronically signed by: Yamil Gonzales M.D. 02/04/2021 7:01 AM
[2021-02-04 08:10] LABS: Hematocrit (blood only) 34.6 % (37-47); Mean Corpuscular Hemoglobin 20.4 pg (25-34); Mean Corpuscular Hgb Conc 28.9 g/dL (32-36); Mean Corpuscular Volume 70.8 fL (80-100); Mean Platelet Volume 9.3 fL (7.4-10.4); Platelet Count 401 K/uL (130-400); RDW Coefficient of Variation 20.2 % (11.5-14.5); RDW Standard Deviation 51.9 fL (36.4-46.3); Red Blood Count 4.89 M/uL (4.2-5.4)
[2021-02-04 08:15] LABS: Anisocytosis Present; Eosinophils # (auto) 0.01 K/uL (0-0.5); Eosinophils % (auto) 0.4 %; Hypochromasia Present; Lymphocytes # (auto) 0.51 K/uL (1.2-3.4); Lymphocytes % (auto) 22.2 %; Monocytes # (auto) 0.44 K/uL (0.11-0.59); Monocytes % (auto) 19.1 %; Neutrophils # (auto) 1.34 K/uL (1.4-6.5); Neutrophils % (auto) 58.3 %; Polychromasia 1+
[2021-02-04 08:26] LABS: BUN Creatinine Ratio 30.1 (10-20); Calcium 8.8 mg/dl (8.5-10.1); Creatinine Clr Calc Pharmacy 68.6 ml/min; Est GFR (African American) 97.7 ml/min; Est GFR (Non-African American) 84.3 ml/min; Magnesium 2.1 mg/dl (1.8-2.4); Potassium 3.7 mmol/L (3.5-5.1)
[2021-02-04 08:33] LABS: Albumin Globulin Ratio 0.7 (0.9-2); Bilirubin,Total 1.1 mg/dl (0.2-1); Globulin 4.1 gm/dl (2.5-4.0); Total Protein 7.1 gm/dl (6.4-8.2)
[2021-02-04 08:50] LABS: Ferritin 11.7 ng/ml (8-388)
--- NOTE | 2021-02-04 09:00 | XRay Report ---
KUB HISTORY: Generalized abdominal pain. COMPARISON: KUB 02/03/2021. FINDINGS: Dilated gas-filled loops of small bowel extending into the deep pelvis have progressed. The se measure up to 4.8 cm in diameter. This is consistent with a high-grade small bowel obstruction. Th e tip of the nasogastric tube likely terminates in the stomach. No renal calculi. No ureteral calculi . No pneumoperitoneum or pneumatosis. Suture material and surgical clips seen within the abdomen are again noted. IMPRESSION: Above findings consistent with a high-grade small bowel obstruction which has progressed in the inter elvira. Surgical consultation recommended. This finding was called/faxed to the referring physician foll owing dictation. ACT 112: Negative or not required by law. Electronically signed by: Arthur Sanabria M.D. 02/04/2021 8:59 AM
--- NOTE | 2021-02-04 09:39 | Medical Student Progress Note ---
Date of Service February 04, 2021 Assessment & Plan (1) Small bowel obstruction: Plan: -Most recent KUB: progression of SBO; located in LLQ - Surgery consultation and recommendations appreciated; keep NG tube in place, not considering surgery at this time, but will be following closely - Appreciate GI recommendations -Continue NPO and IVF NSS + KCl -Mild pain control with Acetaminophen 1 g IV q8h -Moderate pain control with Toradol 15 mg IV q6h -Continue Famotidine 20 mg IV q12h -Discontinue Zosyn 4.5 g IV q8h (2) Microcytic anemia: Plan: -Hgb: 10, MCV: 70.8 -Low iron and low ferritin concerning for iron deficiency anemia -Etiology unclear, but likely secondary to poor absorption from multiple abdominal surgeries -Receiving 300 mg IV Iron infusion today; repeat weekly for the next month -With history of Cortes Syndrome and leukopenia also being present, we would like to r/o neoplastic etiology -Peripheral smear pending -Trend CBC (3) Leukopenia: Plan: -WBC: 2.3 -As mentioned above, want to r/o neoplastic etiology -Peripheral smear pending -Trend CBC DVT PPx: SCD FEN/GI: NPO, IVF Code: Full Status: Med/Surg Admission and Anticipated Discharge Date Admission Date: February 03, 2021 Supervising Attestation Patient seen and examined with TRAVIS Tarango. Agree with with history, exam findings, assessment and plan of care as outlined. 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 Still having some abdominal pain. Today, still with pain but improving. No nausea. Vital signs and nursing notes reviewed. Nontoxic appearing. Abdomen is soft, non-distended. Minimal bowel sounds. Tender in the right and left lower quadrants. 1. high grade SBO at the site of prior anastomosis. COntinue NPO, NGT to low intermittent wall suction. Stopped zosyn--no role at this point for prophylactic antibiotics. Zofran PRN nausea. Appreciate general surgery and GI recommend ations. She is followed by colorectal from [facility] (Dr. Spencer). Will inform Dr. Spencer of patient's admission and push images to the [facility] PACS. 2. Iron deficiency anemia. Low iron and ferritin. Given iron sucrose today. Can repeat several times as an outpatient infusion to increase iron and iron stores. 3. Leukopenia. Peripheral smear pending for the morning. Dispo: pending clinical improvement. Subjective Overall, patient is doing alright. She is lying comfortably in bed. Says her abdominal pain is beginning to rise and is having some back pain, which is a chronic issue. Pain is currently rated at a 3/10 and at its worst, is a 6/10. The pain medications do relieve her pain, but wishes she could get them sooner. She also had been having diarrhea that she describes as "like applesauce but thinner" as she is on cholestyramine. No blood notes in her bowel movements. Patient denies chest pain, shortness of breath, vomiting, difficulty urinating, headache, vision changes. Review of Systems Review of Systems: All systems reviewed & are unremarkable except as noted in Subjective Physical Exam Physical Exam: awake/alert Respiratory: no respiratory distress Cardiovascular: RRR, no murmur, no edema Gastrointestinal (Abdomen): Inspection/Auscultation: + abdominal surgical scar (infraumbilical midline scar & laparoscopic scars from prior surg hx.); abdomen not distended Percussion/Palpation: + abdomen tender (tender to palpation in central abdomen) and abdomen soft; no guarding and abdomen not firm Results & Data ([facility]) Vital Signs (Past 12 Hours) Vital Signs Temp Pulse Resp BP Pulse Ox 02/04/21 07:39 36.9 C 91 H 16 146/90 H 96 02/03/21 22:56 36.9 C 86 20 136/85 95 Laboratory Results Laboratory Results WBC 2.30 K/uL (4.8-10.8) L 02/04/21 07:18 RBC 4.89 M/uL (4.2-5.4) 02/04/21 07:18 Hgb 10.0 g/dL (12.0-16.0) L 02/04/21 07:18 Hct 34.6 % (37-47) L 02/04/21 07:18 MCV 70.8 fL (80-100) L 02/04/21 07:18 MCH 20.4 pg (25-34) L 02/04/21 07:18 MCHC 28.9 g/dL (32-36) L 02/04/21 07:18 RDW Std Deviation 51.9 fL (36.4-46.3) H 02/04/21 07:18 RDW Coeff of Pavan 20.2 % (11.5-14.5) H 02/04/21 07:18 Plt Count 401 K/uL (130-400) H 02/04/21 07:18 MPV 9.3 fL (7.4-10.4) 02/04/21 07:18 Immature Gran % (Auto) 0.0 % 02/04/21 07:18 Neut % (Auto) 58.3 % 02/04/21 07:18 Lymph % (Auto) 22.2 % 02/04/21 07:18 Alexander % (Auto) 19.1 % 02/04/21 07:18 Eos % (Auto) 0.4 % 02/04/21 07:18 Baso % (Auto) 0.0 % 02/04/21 07:18 Neut # (Auto) 1.34 K/uL (1.4-6.5) L 02/04/21 07:18 Lymph # (Auto) 0.51 K/uL (1.2-3.4) L 02/04/21 07:18 Alexander # (Auto) 0.44 K/uL (0.11-0.59) 02/04/21 07:18 Eos # (Auto) 0.01 K/uL (0-0.5) 02/04/21 07:18 Baso # (Auto) 0.00 K/uL (0-0.2) 02/04/21 07:18 Immature Gran # (Auto) 0.00 K/uL (0.00-0.02) 02/04/21 07:18 Polychromasia 1+ 02/04/21 07:18 Hypochromasia Present 02/04/21 07:18 Poikilocytosis Present 02/03/21 15:02 Anisocytosis Present 02/04/21 07:18 Sodium 140 mmol/L (136-145) 02/04/21 07:18 Potassium 3.7 mmol/L (3.5-5.1) 02/04/21 07:18 Chloride 111 mmol/L (98-107) H 02/04/21 07:18 Carbon Dioxide 20 mmol/L (21-32) L 02/04/21 07:18 Anion Gap 9.0 (3-11) 02/04/21 07:18 BUN 22 mg/dl (7-18) H 02/04/21 07:18 Creatinine 0.72 mg/dl (0.6-1.2) 02/04/21 07:18 Est Cr Clr Drug Dosing 68.6 ml/min 02/04/21 07:18 Est GFR ( Amer) 97.7 ml/min 02/04/21 07:18 Est GFR (Non-Af Amer) 84.3 ml/min 02/04/21 07:18 BUN/Creatinine Ratio 30.1 (10-20) H 02/04/21 07:18 Glucose 117 mg/dl (70-99) H 02/04/21 07:18 Calcium 8.8 mg/dl (8.5-10.1) 02/04/21 07:18 Phosphorus 2.6 mg/dl (2.5-4.9) 02/03/21 15:02 Magnesium 2.1 mg/dl (1.8-2.4) 02/04/21 07:18 Iron 15 mcg/dl (35-150) L 02/04/21 07:18 TIBC 390 mcg/dl (250-450) 02/04/21 07:18 Transferrin 322 mg/dl (200-360) 02/04/21 07:18 Ferritin 11.7 ng/ml (8-388) 02/04/21 07:18 Total Bilirubin 1.1 mg/dl (0.2-1) H 02/04/21 07:18 AST 14 U/L (15-37) L 02/04/21 07:18 ALT 20 U/L (12-78) 02/04/21 07:18 Alkaline Phosphatase 118 U/L (45-117) H 02/04/21 07:18 Troponin I < 0.015 ng/ml (0-0.045) 02/03/21 15:02 Total Protein 7.1 gm/dl (6.4-8.2) 02/04/21 07:18 Albumin 3.0 gm/dl (3.4-5.0) L 02/04/21 07:18 Globulin 4.1 gm/dl (2.5-4.0) H 02/04/21 07:18 Albumin/Globulin Ratio 0.7 (0.9-2) L 02/04/21 07:18 Lipase 63 U/L (73-393) L 02/03/21 15:02 COVID-19 Eval Order Covid19 at [facility] 02/03/21 17:31 SARS-CoV-2 (PCR) NEGATIVE (Negative) 02/03/21 17:31 Impressions Abdomen/Pelvis CT 02/03/21 14:48 CT SCAN OF THE ABDOMEN AND PELVIS WITHOUT CONTRAST CLINICAL HISTORY: abd pain, n/v/d COMPARISON STUDY: December 29, 2016 TECHNIQUE: CT scan of the abdomen and pelvis was performed from the lung bases to the proximal femurs. Images are reviewed in the axial, sagittal, and coronal planes. IV contrast was not administered for this examination. A dose lowering technique was utilized adhering to the principles of ALARA. CT DOSE: 542.28 mGy.cm FINDINGS: Lower chest: Large hiatal hernia, slightly worsened since prior with compressive atelectasis of surrounding lung parenchyma. Interval development of 5 mm pulmonary nodule within subpleural aspect of the left lower lobe (3/13) Liver: The unenhanced liver is normal in size, contour, and attenuation. There is no intrahepatic biliary ductal dilatation. Gallbladder: Is surgically absent Spleen: Normal in size and attenuation. Pancreas: Unremarkable. Adrenal glands: Unremarkable. Kidneys: The unenhanced kidneys are normal in size without hydronephrosis. There is no contour deforming renal mass lesion. No renal calculi are identified. Bowel: Status post partial colectomy. Anastomosis is seen within left lower quadrant (3/160) and shows collapsed lumen with proximal diffuse dilatation of the small bowel loops and multiple areas of gas fluid level. Loops of small bowel measure up to 4.5 cm in diameter. Peritoneum: No free intra-abdominal gas is seen. Diffuse mesenteric edema. No evidence of ascites. Vasculature: Abdominal aorta is normal in caliber with scattered calcifications of its wall. Adenopathy: None. Pelvic viscera: Urinary bladder is partially decompressed which limits evaluation. Uterus is surgically absent. Skeletal structures: Mild osteopenia. Multilevel degenerative changes of the spine. Mild anterolisthesis of L4 on L5. IMPRESSION: 1. High-grade small bowel obstruction. Transition zone is seen within site of surgical anastomosis within left lower quadrant. No free intra-abdominal gas or ascites seen however there is diffuse mesenteric edema. Findings will be sent to emergency Department. 2. Large hiatal hernia. 3. Atherosclerosis. 4. Mild anterolisthesis of L4 on L5. 5. Status post hysterectomy. 6. 5 mm pulmonary nodule within left base. Further evaluation with CT of the chest without IV contrast on nonemergency basis is suggested. ACT 112: Positive. There are findings on this exam that require communication between the performing entity and the patient following Patient Test Result Information Act ([place] Act 112) guidelines. The above report was generated using voice recognition software. It may contain grammatical, syntax or spelling errors. Electronically signed by: Jovita Alan DO 02/03/2021 4:23 PM KUB X-Ray 02/04/21 07:00 KUB HISTORY: Generalized abdominal pain. COMPARISON: KUB 02/03/2021. FINDINGS: Dilated gas-filled loops of small bowel extending into the deep pelvis have progressed. These measure up to 4.8 cm in diameter. This is consistent with a high-grade small bowel obstruction. The tip of the nasogastric tube likely terminates in the stomach. No renal calculi. No ureteral calculi. No pneumoperitoneum or pneumatosis. Suture material and surgical clips seen within the abdomen are again noted. IMPRESSION: Above findings consistent with a high-grade small bowel obstruction which has progressed in the interval. Surgical consultation recommended. This finding was called/faxed to the referring physician following dictation. ACT 112: Negative or not required by law. Electronically signed by: Arthur Sanabria M.D. 02/04/2021 8:59 AM Medications Administered Current Inpatient Medications Acetaminophen (Acetaminophen 1000 Mg/100 Ml Iv) 1,000 mg IV Q8H PRN PRN Reason: Pain or Fever Stop: 02/06/21 20:45 Last Admin: 02/04/21 01:42 Dose: 1,000 mg Documented by: Piperacillin Sod/Tazobactam (Sod 3.375 gm/ Dextrose) 115 mls @ 28.75 mls/hr IV Q8H ROSAURA; Protocol Stop: 02/14/21 01:59 Last Admin: 02/04/21 09:55 Dose: 28.8 mls/hr Documented by: Famotidine 20 mg/ Syringe 5 mls @ 2.5 mls/min IV Q12H ROSAURA Stop: 03/05/21 20:59 Last Admin: 02/04/21 09:54 Dose: 2.5 mls/min Documented by: Potassium Chloride/Sodium Chloride (Normal Saline W/20 Meq Kcl) 20 meq in 1,000 mls @ 100 mls/hr IV .Q10H ROSAURA Stop: 03/05/21 23:14 Last Admin: 02/04/21 09:56 Dose: 100 mls/hr Documented by: Ketorolac Tromethamine (Ketorolac Tromethamine 15 Mg/Ml Vial) 15 mg IV Q6H PRN PRN Reason: Moderate Pain Stop: 02/08/21 20:45 Last Admin: 02/04/21 11:56 Dose: 15 mg Documented by: Miscellaneous Information (Piperacill/Tazobac Consult Active) 1 ea N/A UD PRN PRN Reason: Consult Stop: 03/05/21 20:45 Ondansetron HCl (Ondansetron Inj 2 Mg/Ml 2 Ml Vial) 4 mg IV Q6H PRN PRN Reason: Nausea Stop: 03/05/21 20:45 Timolol Maleate (Timolol Maleate 0.5% Op Soln 5 Ml Btl) 1 drops OP DAILY ROSAURA Stop: 03/06/21 08:59 Last Admin: 02/04/21 09:55 Dose: 1 drops Documented by:
[2021-02-04] MEDS: FAMOTIDINE 20 MG in SYRINGE 3 ML IV SCH ×2 (09:54→19:58)
[2021-02-04] MEDS: TIMOLOL MALEATE 0.5% OP SOLN 5 ML BTL OP SCH (09:55)
[2021-02-04] MEDS: NSS + 20MEQ KCL 20 MEQ/1,000 ML BAG IV SCH ×2 (09:56→19:20)
[2021-02-04] MEDS ORDERED: IRON SUCROSE 300 MG in SODIUM CHLORIDE 0.9% 250 ML IV ONE (10:15)
--- NOTE | 2021-02-04 11:02 | Surgery Progress Note ---
Date of Service February 04, 2021 Assessment & Plan (1) Small bowel obstruction: Plan: clinically improved although mild increase in dilation on XR advance NG Admission and Anticipated Discharge Date Admission Date: February 03, 2021 Supervising Physician Co-Signing Physician Notes I personally saw and evaluated the patient with Albert Ruiz PA-C and agree with the assessment and plan 70 yo female with history of Cortes syndrome s/p subtotal colectomy here with SBO -Clinically she is passing flatus and having BM's -Will continue to keep NPO with NGT -No signs of bowel ischemia or perforation -Will try to treat nonoperatively -Will follow Subjective multiple BMs like applesauce, increasing flatus Physical Exam Gastrointestinal (Abdomen): Inspection/Auscultation: + abdomen distended (slight) Percussion/Palpation: abdomen soft NG 70 cc but only at 40 cm Results & Data ([facility]) Vital Signs (Past 12 Hours) Vital Signs Temp Pulse Resp BP Pulse Ox 02/04/21 07:39 36.9 C 91 H 16 146/90 H 96 PG Care Time/CCT Total # of Minutes Spent Total Time Spent with Patient: Total time spent is greater than 50% in coor dination of care (as documented) at patient's floor/unit and/or counseling patient: Coding Level of Care Code 45050 Subseq Hosp Care Lvl 1 Diagnoses Small bowel obstruction K56.609
--- NOTE | 2021-02-04 15:03 | Gastrointestinal Consultation ---
Date of Consultation February 04, 2021 Assessment & Plan (1) Small bowel obstruction: Continue recommendations per surgery. If SBO resolves then recommend SBFT as outpt to see if fixed stricture is present If SBO persists or fails to improve then patient will need surgery. She indicated wishing Dr Spencer from colorectal surgery [place] [facility] and I told her if she does need surgery she could be transferred to [place] if she desires I am going off service tomorrow at [address] Saldaña is assumign GI care then. History of Present Illness Reason for Consultation: small bowel obstruction Requesting Physician: DR Blair Attending Physician: Eliza Hines DO History of Present Illness Pt known to me from recent EGD and Flex sigmoidoscopy done 01/27/21 for surveillance for Cortes sydrome. Pt had colectomy done with only remaining colon the rectum and sigmoid. Reviewed EGD report and showed large HH otherwise normal and gastric mapping negative for H.pylori and neg for intestinal metaplasia. Reviewed Flexible sigmoidoscopy which showed ileocolonic anastomosis of the sigmoid and 2 erosions in the rectum path hyperplastic change and inflammation. Pt came to the hospital for n/v and abdominal pain. She had CT a/p showing large HH, new 5 mm pulmonary nodule vs 2017, s/p partial colectomy, collapsed lumen of anastomosis with proximal dilatation of SB up to 4.5 cm. NG was placed and patient feels better and is passing gas and stool but KUB this am somewhat worse dilatation. Allergies Allergy/AdvReac Type Severity Reaction Status Date / Time codeine Allergy Severe SHORTNESS Verified 02/03/21 14:57 OF BREATH morphine Allergy Severe SHORTNESS Verified 02/03/21 14:57 OF BREATH benzalkonium chloride AdvReac Mild EYE Verified 02/03/21 14:57 IRRITATION AND REDNESS chocolate flavor AdvReac Mild causes Verified 02/03/21 14:57 sneezing travoprost AdvReac Mild EYE Verified 02/03/21 14:57 IRRITATION AND REDNESS Home Medications Medication Instructions Recorded Confirmed Type cholestyramine (with sugar) 4 gram 1 ea PO QAM 02/03/21 02/03/21 History powder for susp in a packet lorazepam 1 mg tablet 1 mg PO TID PRN 02/03/21 02/03/21 History naproxen sodium 220 mg tablet 220 mg PO Q12H PRN 02/03/21 02/03/21 History (Alevidal) timolol maleate 0.5 % eye drops 1 drp OPB DAILY 02/03/21 02/03/21 History Patient History Surgical History H/O section H/O: hysterectomy History of appendectomy History of bowel resection History of cholecystectomy Social History Smoking Status: Never smoker Hx Alcohol Use: No Hx Substance Use: No Preferred Language: Burkinan Communication Ability: Effective Grade And Center Marker Required: No Beliefs That Will Affect Care: None Current Living Situation: Spouse Feels Safe at Home: Yes Assistive Devices: Glasses Review of Systems Review of Systems: All systems reviewed & are unremarkable except as noted in HPI & below Physical Exam Constitutional: WD/WN, vitals as above Eyes: PERRL, conjunctivae normal, anicteric sclerae ENMT: Ears: no external ear abnormality Neck: normal visual inspection and trachea midline Respiratory: normal respiratory effort, lungs clear to auscultation Cardiovascular: RRR, no murmur, no edema Gastrointestinal (Abdomen): dimished bowel sounds, moderately distended and tympanitic, mild guarding near ostomy, no rebound. , Musculoskeletal: no cyanosis or clubbing, extremities motor strength 5/5 Neurologic: PERRL, EOMI, accommodation nl, no face palsy, no dysarthria Psychiatric: A+Ox3, euthymic affect Results & Data ([place]) Vital Signs (Past 12 Hours) Vital Signs Temp Pulse Resp BP Pulse Ox 02/04/21 14:54 36.6 C 101 H 16 121/87 94 02/04/21 07:39 36.9 C 91 H 16 146/90 H 96
[2021-02-05] MEDS: NSS + 20MEQ KCL 20 MEQ/1,000 ML BAG IV SCH ×2 (05:20→15:27)
[2021-02-05 07:33] LABS: Est GFR (African American) 108.7 ml/min; Est GFR (Non-African American) 93.8 ml/min; Potassium 4.2 mmol/L (3.5-5.1)
[2021-02-05 07:34] LABS: Albumin Level 2.9 gm/dl (3.4-5.0); BUN Creatinine Ratio 35.2 (10-20); Calcium 8.8 mg/dl (8.5-10.1); Creatinine Clr Calc Pharmacy 88.1 ml/min; Magnesium 1.8 mg/dl (1.8-2.4)
[2021-02-05 07:36] LABS: Albumin Globulin Ratio 0.7 (0.9-2); Bilirubin,Total 0.6 mg/dl (0.2-1); Globulin 4.3 gm/dl (2.5-4.0); Total Protein 7.2 gm/dl (6.4-8.2)
[2021-02-05 07:48] LABS: Hematocrit (blood only) 34.6 % (37-47); Hemoglobin 9.8 g/dL (12.0-16.0); Mean Corpuscular Hemoglobin 20.4 pg (25-34); Mean Corpuscular Hgb Conc 28.3 g/dL (32-36); Mean Corpuscular Volume 72.1 fL (80-100); Mean Platelet Volume 9.1 fL (7.4-10.4); Nucleated RBC # (auto) 0.02 K/uL (0-0); Nucleated RBC % (auto) 0.2 %; Platelet Count 347 K/uL (130-400); RDW Coefficient of Variation 20.8 % (11.5-14.5); RDW Standard Deviation 54.5 fL (36.4-46.3); White Blood Count 9.28 K/uL (4.8-10.8)
[2021-02-05] MEDS: KETOROLAC TROMETHAMINE 15 MG/ML VIAL IV PRN (07:52)
[2021-02-05] MEDS: TIMOLOL MALEATE 0.5% OP SOLN 5 ML BTL OP SCH (07:58)
[2021-02-05 08:11] LABS: ALC (manual) 1.05 K/uL (1.2-3.4); ANC (manual) 7.75 K/uL (1.4-6.5); Anisocytosis Present; Hypochromasia Present; Lymphocytes # (manual) 1.05 K/uL (1.2-3.4); Lymphocytes % (manual) 11.3 %; Monocytes # (manual) 0.48 K/uL (0.11-0.59); Monocytes % (manual) 5.2 %; Neutrophils # (manual) 7.75 K/uL (1.4-6.5); Neutrophils % (manual) 83.5 %; Ovalocytes 1+; Polychromasia 1+
--- NOTE | 2021-02-05 08:19 | Gastroenterology Progress Note ---
Date of Service February 05, 2021 Assessment & Plan (1) Small bowel obstruction: Plan: Continue recommendations per surgery. If SBO resolves, then recommend SBFT as outpt to see if fixed stricture is present If SBO persists or fails to improve then patient will need surgery. She indicated wishing Dr Spencer from colorectal surgery at [facility] and I told her if she does need surgery she could be transferred to [place] if she desires Please refer to supervising physician addendum for further recommendations. Admission and Anticipated Discharge Date Admission Date: February 03, 2021 Supervising Physician Co-Signing Physician Notes I interviewed and examined the patient and reviewed the medical record, with the following observations: Subjective: The patient reported significant improvement in abdominal pain and distension, she is now pain free. NG tube has been clamped all day. She continues to pass flatus and unformed stools. Physical Examination: The abdomen is flat and soft without guarding, tenderness, peritoneal signs. No bowel sounds appreciated over several minutes. Chart Review: Imaging today continues to show small bowel distension with transition point low in the pelvis This case was reviewed with the advanced practice provider I agree with the assessment as outlined in this consultation, with the following observations: Clinically improving despite imaging findings. I agree with management by the surgery team. I agree with the plan of care as outlined in this consultation, with the following changes and/or additions: We will continue to follow and assist in care. If this episode resolves, we will see the patient in follow up as an outpatient. She has been using cholestyramine daily since 2017 for control of diarrhea, and this may be an issue post discharge. Subjective Patient reports that she did not sleep much over night. NGT is in place to left nare. Reports mild upper abdominal pain. Also is experiencing back pain. Denies nausea or vomiting. Reports bowel movement x2 last night and feels as though she needs to go again this morning. Passing flatus. Denies blood or melena stools. Review of Systems Review of Systems: All systems reviewed & are unremarkable except as noted in HPI & below Physical Exam Gastrointestinal (Abdomen): Inspection/Auscultation: abdomen normal to inspection Percussion/Palpation: + abdomen tender (upper abdomen), abdomen soft and + tympanic to percussion; abdomen not rigid Results & Data ([facility]) Vital Signs (Past 12 Hours) Vital Signs Temp Pulse Resp BP Pulse Ox 02/05/21 08:06 36.6 C 93 H 17 157/93 H 96 02/04/21 21:41 36.7 C 96 H 16 127/85 95 Laboratory Results Laboratory Results - last 24 hr 02/04/21 02/04/21 02/04/21 07:18 07:18 07:18 WBC RBC Hgb Hct MCV MCH MCHC RDW Std Deviation RDW Coeff of Pavan Plt Count MPV Absolute Nucleated RBC Nucleated RBC % (auto) Neutrophils % (Manual) Lymphocytes % (Manual) Monocytes % (Manual) Neutrophils # (Manual) Total Absolute Neuts Lymphocytes # (Manual) Total Abs Lymphocytes Monocytes # (Manual) Polychromasia Hypochromasia Anisocytosis Ovalocytes Peripher Smr Path Cons Sodium 140 Potassium 3.7 Chloride 111 H Carbon Dioxide 20 L Anion Gap 9.0 BUN 22 H Creatinine 0.72 Est Cr Clr Drug Dosing 68.6 Est GFR ( Amer) 97.7 Est GFR (Non-Af Amer) 84.3 BUN/Creatinine Ratio 30.1 H Glucose 117 H Calcium 8.8 Magnesium 2.1 Iron 15 L TIBC 390 Transferrin 322 Ferritin 11.7 Total Bilirubin 1.1 H AST 14 L ALT 20 Alkaline Phosphatase 118 H Total Protein 7.1 Albumin 3.0 L Globulin 4.1 H Albumin/Globulin Ratio 0.7 L 02/05/21 02/05/21 06:43 07:31 WBC 9.28 RBC 4.80 Hgb 9.8 L Hct 34.6 L MCV 72.1 L MCH 20.4 L MCHC 28.3 L RDW Std Deviation 54.5 H RDW Coeff of Pavan 20.8 H Plt Count 347 MPV 9.1 Absolute Nucleated RBC 0.02 H Nucleated RBC % (auto) 0.2 Neutrophils % (Manual) 83.5 Lymphocytes % (Manual) 11.3 Monocytes % (Manual) 5.2 Neutrophils # (Manual) 7.75 H Total Absolute Neuts 7.75 H Lymphocytes # (Manual) 1.05 L Total Abs Lymphocytes 1.05 L Monocytes # (Manual) 0.48 Polychromasia 1+ Hypochromasia Present Anisocytosis Present Ovalocytes 1+ Peripher Smr Path Cons Sodium 143 Potassium 4.2 Chloride 117 H Carbon Dioxide 19 L Anion Gap 8.0 BUN 20 H Creatinine 0.56 L Est Cr Clr Drug Dosing 88.1 Est GFR ( Amer) 108.7 Est GFR (Non-Af Amer) 93.8 BUN/Creatinine Ratio 35.2 H Glucose 104 H Calcium 8.8 Magnesium 1.8 Iron TIBC Transferrin Ferritin Total Bilirubin 0.6 D AST 14 L ALT 20 Alkaline Phosphatase 104 Total Protein 7.2 Albumin 2.9 L Globulin 4.3 H Albumin/Globulin Ratio 0.7 L
[2021-02-05] MEDS: FAMOTIDINE 20 MG in SYRINGE 3 ML IV SCH ×2 (09:16→20:32)
--- NOTE | 2021-02-05 09:27 | XRay Report ---
KUB HISTORY: Small bowel obstruction. Follow-up. COMPARISON: KUB 02/04/2021. FINDINGS: Progressive dilatation of the dilated gas-filled loop of small bowel within the abdomen. Th e transition point appears to be located within the lower pelvis. Small bowel loops measure up to 5.4 cm in diameter, previously measuring 4.8 cm. There are surgical clips and suture material within the abdomen and pelvis. Nasogastric tube terminates in the mid stomach. Hiatus hernia. No renal calculi . No ureteral calculi. No pneumoperitoneum or pneumatosis. IMPRESSION: Progressive high-grade small bowel obstruction as described above. ACT 112: Negative or not required by law. Electronically signed by: Arthur Sanabria M.D. 02/05/2021 9:25 AM
--- NOTE | 2021-02-05 10:53 | Surgery Progress Note ---
Date of Service February 05, 2021 Assessment & Plan (1) Small bowel obstruction: Plan: clinically improved has ileo-rectosigmoid anastomosis- likely "transition" area on XR can clamp NG, remove later if remains asymptomatic Admission and Anticipated Discharge Date Admission Date: February 03, 2021 Supervising Physician Co-Signing Physician Notes I personally saw and evaluated the patient with Albert Ruiz PA-C and agree with the assessment and plan 70 yo female with history of Cortes syndrome s/p subtotal colectomy here with SBO -Clinically she is passing flatus and having BM's -Will clamp NGT -X-rays still reveal dilated bowel, but she is doing better -No signs of bowel ischemia or perforation -Will try to treat nonoperatively -Will follow Subjective feeling better, continued flatus and multiple BMs describe as "mud" Physical Exam Gastrointestinal (Abdomen): Inspection/Auscultation: abdomen not distended Percussion/Palpation: abdomen soft; abdomen nontender Results & Data ([facility]) Vital Signs (Past 12 Hours) Vital Signs Temp Pulse Resp BP Pulse Ox 02/05/21 08:06 36.6 C 93 H 17 157/93 H 96 PG Care Time/CCT Total # of Minutes Spent Total Time Spent with Patient: Total time spent is greater than 50% in coordination of care (as documented) at patient's floor/unit and/or counseling patient: Coding Level of Care Code 32654 Subseq Hosp Care Lvl 2 Diagnoses Small bowel obstruction K56.609
--- NOTE | 2021-02-05 13:11 | Medical Student Progress Note ---
Date of Service February 05, 2021 Assessment & Plan (1) Small bowel obstruction: Plan: -Most recent KUB: progression of SBO; located in LLQ, but patient is clinically improving -Surgery consultation and recommended appreciated; keep NG tube in place, clamping the cord and turning off suction, not considering surgery at this time, but will be following closely -Continue NPO and IVF NSS + KCl -Mild pain control with Acetaminophen 1 g IV q8h -Moderate pain control with Toradol 15 mg IV q6h -Continue Famotidine 20 mg IV q12h -Discontinue Zosyn 4.5 g IV q8h (2) Microcytic anemia: Plan: -Hgb: 9.8, MCV: 72.1 -Low iron and low ferritin concerning for iron deficiency anemia -Etiology unclear, but likely secondary to poor absorption from multiple abdominal surgeries -Received 300 mg IV Iron infusion yesterday; repeat weekly for the next month -Peripheral smear findings: not concerning for blasts or schistocytes, strongly suggesting iron deficiency anemia -Trend CBC (3) Leukopenia: Plan: -Resolved -WBC: 9.28, uptrending from 2.3 on 02/04 -Peripheral smear not concerning for hematologic malignancy DVT PPx: SCD FEN/GI: NPO, IVF Code: Full Status: Med/Surg Admission and Anticipated Discharge Date Admission Date: February 03, 2021 Supervising Attestation Patient seen and examined with TRAVIS Tarango. Agree with with history, exam findings, assessment and plan of care as outlined. 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 Still having some abdominal pain. Less abdominal pain today. Has not had any nausea with sips and chips. She is aware of trial of NGT clamping recommended by surgery. Vital signs and nursing notes reviewed. Nontoxic appearing. Abdomen is soft, non-distended. Minimal bowel sounds. Nontender. 1. high grade SBO at the site of prior anastomosis. Clincally improving. KUB this morning indicates some increase in the bowel loop dilation. Continue NPO except sips and chips, Will do a trial of clamping of NGT. Stopped zosyn--no role at this point for prophylactic antibiotics. Zofran PRN nausea. Appreciate general surgery and GI recommendations. She is followed by colorectal from [place] (Dr. Spencer). Will inform Dr. Spencer of patient's admission and push images to the [facility] PACS. 2. Iron deficiency anemia. Low iron and ferritin. Iron sucrose given yesterday. Can repeat several times as an outpatient infusion to increase iron and iron stores. 3. Leukopenia. Peripheral smear unremarkable white blood cells, but consistent with RODRIGUEZ (see above). Dispo: pending clinical improvement. Subjective Overall, patient is feeling much better today. She is not complaining of any belly tenderness at this time, and has been stooling (3x this morning) as well as passing gas. No nausea, vomiting, chest pain, palpitations, blood in the stool, or difficulty urinating. Review of Systems Review of Systems: All systems reviewed & are unremarkable except as noted in Subjective Physical Exam Physical Exam: awake/alert Respiratory: no respiratory distress Cardiovascular: RRR, no murmur, no edema Gastrointestinal (Abdomen): Inspection/Auscultation: + abdominal surgical scar (infraumbilical midline scar & laparoscopic scars from prior surg hx.); abdomen not distended Percussion/Palpation: abdomen soft; abdomen nontender, no guarding and abdomen not firm Results & Data ([facility]) Vital Signs (Past 12 Hours) Vital Signs Temp Pulse Resp BP Pulse Ox 02/05/21 08:06 36.6 C 93 H 17 157/93 H 96 Laboratory Results Laboratory Results WBC 9.28 K/uL (4.8-10.8) 02/05/21 07:31 RBC 4.80 M/uL (4.2-5.4) 02/05/21 07:31 Hgb 9.8 g/dL (12.0-16.0) L 02/05/21 07:31 Hct 34.6 % (37-47) L 02/05/21 07:31 MCV 72.1 fL (80-100) L 02/05/21 07:31 MCH 20.4 pg (25-34) L 02/05/21 07:31 MCHC 28.3 g/dL (32-36) L 02/05/21 07:31 RDW Std Deviation 54.5 fL (36.4-46.3) H 02/05/21 07:31 RDW Coeff of Pavan 20.8 % (11.5-14.5) H 02/05/21 07:31 Plt Count 347 K/uL (130-400) 02/05/21 07:31 MPV 9.1 fL (7.4-10.4) 02/05/21 07:31 Immature Gran % (Auto) 0.0 % 02/04/21 07:18 Neut % (Auto) 58.3 % 02/04/21 07:18 Lymph % (Auto) 22.2 % 02/04/21 07:18 Hall % (Auto) 19.1 % 02/04/21 07:18 Eos % (Auto) 0.4 % 02/04/21 07:18 Baso % (Auto) 0.0 % 02/04/21 07:18 Neut # (Auto) 1.34 K/uL (1.4-6.5) L 02/04/21 07:18 Lymph # (Auto) 0.51 K/uL (1.2-3.4) L 02/04/21 07:18 Hall # (Auto) 0.44 K/uL (0.11-0.59) 02/04/21 07:18 Eos # (Auto) 0.01 K/uL (0-0.5) 02/04/21 07:18 Baso # (Auto) 0.00 K/uL (0-0.2) 02/04/21 07:18 Immature Gran # (Auto) 0.00 K/uL (0.00-0.02) 02/04/21 07:18 Absolute Nucleated RBC 0.02 K/uL (0-0) H 02/05/21 07:31 Nucleated RBC % (auto) 0.2 % 02/05/21 07:31 Neutrophils % (Manual) 83.5 % 02/05/21 07:31 Lymphocytes % (Manual) 11.3 % 02/05/21 07:31 Monocytes % (Manual) 5.2 % 02/05/21 07:31 Neutrophils # (Manual) 7.75 K/uL (1.4-6.5) H 02/05/21 07:31 Total Absolute Neuts 7.75 K/uL (1.4-6.5) H 02/05/21 07:31 Lymphocytes # (Manual) 1.05 K/uL (1.2-3.4) L 02/05/21 07:31 Total Abs Lymphocytes 1.05 K/uL (1.2-3.4) L 02/05/21 07:31 Monocytes # (Manual) 0.48 K/uL (0.11-0.59) 02/05/21 07:31 Polychromasia 1+ 02/05/21 07:31 Hypochromasia Present 02/05/21 07:31 Poikilocytosis Present 02/03/21 15:02 Anisocytosis Present 02/05/21 07:31 Ovalocytes 1+ 02/05/21 07:31 Peripher Smr Path Cons 02/04/21 07:18 Sodium 143 mmol/L (136-145) 02/05/21 06:43 Potassium 4.2 mmol/L (3.5-5.1) 02/05/21 06:43 Chloride 117 mmol/L (98-107) H 02/05/21 06:43 Carbon Dioxide 19 mmol/L (21-32) L 02/05/21 06:43 Anion Gap 8.0 (3-11) 02/05/21 06:43 BUN 20 mg/dl (7-18) H 02/05/21 06:43 Creatinine 0.56 mg/dl (0.6-1.2) L 02/05/21 06:43 Est Cr Clr Drug Dosing 88.1 ml/min 02/05/21 06:43 Est GFR ( Amer) 108.7 ml/min 02/05/21 06:43 Est GFR (Non-Af Amer) 93.8 ml/min 02/05/21 06:43 BUN/Creatinine Ratio 35.2 (10-20) H 02/05/21 06:43 Glucose 104 mg/dl (70-99) H 02/05/21 06:43 Calcium 8.8 mg/dl (8.5-10.1) 02/05/21 06:43 Phosphorus 2.6 mg/dl (2.5-4.9) 02/03/21 15:02 Magnesium 1.8 mg/dl (1.8-2.4) 02/05/21 06:43 Iron 15 mcg/dl (35-150) L 02/04/21 07:18 TIBC 390 mcg/dl (250-450) 02/04/21 07:18 Transferrin 322 mg/dl (200-360) 02/04/21 07:18 Ferritin 11.7 ng/ml (8-388) 02/04/21 07:18 Total Bilirubin 0.6 mg/dl (0.2-1) D 02/05/21 06:43 AST 14 U/L (15-37) L 02/05/21 06:43 ALT 20 U/L (12-78) 02/05/21 06:43 Alkaline Phosphatase 104 U/L (45-117) 02/05/21 06:43 Troponin I < 0.015 ng/ml (0-0.045) 02/03/21 15:02 Total Protein 7.2 gm/dl (6.4-8.2) 02/05/21 06:43 Albumin 2.9 gm/dl (3.4-5.0) L 02/05/21 06:43 Globulin 4.3 gm/dl (2.5-4.0) H 02/05/21 06:43 Albumin/Globulin Ratio 0.7 (0.9-2) L 02/05/21 06:43 Lipase 63 U/L (73-393) L 02/03/21 15:02 COVID-19 Eval Order Covid19 at [facility] 02/03/21 17:31 SARS-CoV-2 (PCR) NEGATIVE (Negative) 02/03/21 17:31 Impressions Abdomen/Pelvis CT 02/03/21 14:48 CT SCAN OF THE ABDOMEN AND PELVIS WITHOUT CONTRAST CLINICAL HISTORY: abd pain, n/v/d COMPARISON STUDY: December 29, 2016 TECHNIQUE: CT scan of the abdomen and pelvis was performed from the lung bases to the proximal femurs. Images are reviewed in the axial, sagittal, and coronal planes. IV contrast was not administered for this examination. A dose lowering technique was utilized adhering to the principles of ALARA. CT DOSE: 542.28 mGy.cm FINDINGS: Lower chest: Large hiatal hernia, slightly worsened since prior with compressive atelectasis of surrounding lung parenchyma. Interval development of 5 mm pulmonary nodule within subpleural aspect of the left lower lobe (09/06) Liver: The unenhanced liver is normal in size, contour, and attenuation. There is no intrahepatic biliary ductal dilatation. Gallbladder: Is surgically absent Spleen: Normal in size and attenuation. Pancreas: Unremarkable. Adrenal glands: Unremarkable. Kidneys: The unenhanced kidneys are normal in size without hydronephrosis. There is no contour deforming renal mass lesion. No renal calculi are identified. Bowel: Status post partial colectomy. Anastomosis is seen within left lower quadrant (3/160) and shows collapsed lumen with proximal diffuse dilatation of the small bowel loops and multiple areas of gas fluid level. Loops of small bowel measure up to 4.5 cm in diameter. Peritoneum: No free intra-abdominal gas is seen. Diffuse mesenteric edema. No evidence of ascites. Vasculature: Abdominal aorta is normal in caliber with scattered calcifications of its wall. Adenopathy: None. Pelvic viscera: Urinary bladder is partially decompressed which limits evaluation. Uterus is surgically absent. Skeletal structures: Mild osteopenia. Multilevel degenerative changes of the spine. Mild anterolisthesis of L4 on L5. IMPRESSION: 1. High-grade small bowel obstruction. Transition zone is seen within site of surgical anastomosis within left lower quadrant. No free intra-abdominal gas or ascites seen however there is diffuse mesenteric edema. Findings will be sent to emergency Department. 2. Large hiatal hernia. 3. Atherosclerosis. 4. Mild anterolisthesis of L4 on L5. 5. Status post hysterectomy. 6. 5 mm pulmonary nodule within left base. Further evaluation with CT of the chest without IV contrast on nonemergency basis is suggested. ACT 112: Positive. There are findings on this exam that require communication between the performing entity and the patient following Patient Test Result Information Act ([place] Act 112) guidelines. The above report was generated using voice recognition software. It may contain grammatical, syntax or spelling errors. Electronically signed by: Jovita Alan DO 02/03/2021 4:23 PM KUB X-Ray 02/05/21 07:00 KUB HISTORY: Small bowel obstruction. Follow-up. COMPARISON: KUB 02/04/2021. FINDINGS: Progressive dilatation of the dilated gas-filled loop of small bowel within the abdomen. The transition point appears to be located within the lower pelvis. Small bowel loops measure up to 5.4 cm in diameter, previously measuring 4.8 cm. There are surgical clips and suture material within the abdomen and pelvis. Nasogastric tube terminates in the mid stomach. Hiatus hernia. No renal calculi. No ureteral calculi. No pneumoperitoneum or pneumatosis. IMPRESSION: Progressive high-grade small bowel obstruction as described above. ACT 112: Negative or not required by law. Electronically signed by: Arthur Sanabria M.D. 02/05/2021 9:25 AM Medications Administered Current Inpatient Medications Acetaminophen (Acetaminophen 1000 Mg/100 Ml Iv) 1,000 mg IV Q8H PRN PRN Reason: Pain or Fever Stop: 02/06/21 20:45 Last Admin: 02/04/21 01:42 Dose: 1,000 mg Documented by: Famotidine 20 mg/ Syringe 5 mls @ 2.5 mls/min IV Q12H ROSAURA Stop: 03/05/21 20:59 Last Admin: 02/05/21 09:16 Dose: 2.5 mls/min Documented by: Potassium Chloride/Sodium Chloride (Normal Saline W/20 Meq Kcl) 20 meq in 1,000 mls @ 100 mls/hr IV .Q10H ROSAURA Stop: 03/05/21 23:14 Last Admin: 02/05/21 05:20 Dose: 100 mls/hr Documented by: Ketorolac Tromethamine (Ketorolac Tromethamine 15 Mg/Ml Vial) 15 mg IV Q6H PRN PRN Reason: Moderate Pain Stop: 02/08/21 20:45 Last Admin: 02/05/21 07:52 Dose: 15 mg Documented by: Ondansetron HCl (Ondansetron Inj 2 Mg/Ml 2 Ml Vial) 4 mg IV Q6H PRN PRN Reason: Nausea Stop: 03/05/21 20:45 Timolol Maleate (Timolol Maleate 0.5% Op Soln 5 Ml Btl) 1 drops OP DAILY ROSAURA Stop: 03/06/21 08:59 Last Admin: 02/05/21 07:58 Dose: 1 drops Documented by:
[2021-02-06] MEDS: NSS + 20MEQ KCL 20 MEQ/1,000 ML BAG IV SCH ×3 (01:34→22:53)
--- NOTE | 2021-02-06 08:19 | Medical Student Progress Note ---
Date of Service February 06, 2021 Assessment & Plan (1) Small bowel obstruction: Plan: -Patient clinically improving -Surgery/GI consultations and recommendations appreciated; NG tube removed, patient tolerated clear liquids for lunch, continue to monitor -Most recent KUB: progression of SBO; located in LLQ -Mild pain control with Acetaminophen 1 g IV q8h -Moderate pain control with Toradol 15 mg IV q6h -Continue Famotidine 20 mg IV q12h (2) Microcytic anemia: Plan: -Hgb: 8.8, MCV: 72.4; low iron and low ferritin found in earlier labs this week, concerning for iron deficiency anemia -Received IVF; remeasured Hgb: 9.1 -Receiving 300 mg IV Iron infusion -Etiology unclear, but likely secondary to poor absorption from multiple abdominal surgeries -IV Iron infusion likely repeated weekly for the next month -Peripheral smear findings earlier this week: not concerning for blasts or schistocytes, strongly suggesting iron deficiency anemia -Trend CBC (3) Leukocytosis: Plan: -WBC 8 am: 13.28 (vs. 9.28 on 02/05 --> 2.3 on 02/04) -Repeat WBC 02/06 pm: 15.07 -Etiology unknown, could be secondary to bowel inflammation from SBO -Hemodynamically stable, asymptomatic; continue to monitor -Trend CBC (4) Leukopenia: Plan: -Resolved -WBC 02/06 pm: 15.07, up from 2.3 on 02/04 -Peripheral smear not concerning for hematologic malignancy DVT PPx: SCDs FEN/GI: Clears, advance as tolerated Code: Full Status: Med/Surg Admission and Anticipated Discharge Date Admission Date: February 03, 2021 Supervising Attestation Attending attestation Pt seen and examined in concert with St. Dr. Emelina Joseph. In agreement with the documented findings as noted in the resident documentation with any exceptions or additions as noted here. 2x bowel movements with improvement in abdominal tightness and nausea. On examination, S1/S2 nl RRR no MCG. CTAB. Abd mild TTP diffusely, persistent distention. BS+ve High grade SBO - tolerating s/p NGT removal. Continue PRN ondansetron. Leukocytosis - afebrile and without complaint, may be resolving stercoral colitis. Monitor/trend. Fe deficiency anemia - repeat dose of iron sucrose Else see resident/student documentation as noted. Subjective Overall, patient is doing well and is not complaining of any pain. She has been passing gas and having several bowel movements daily. While in the room, the nurse removed her NG tube and she is visibly anxious about what will happen moving forward, given her history of abdominal issues. She was started on a clear liquid diet for lunch and tolerated it well. No nausea, vomiting, chest pain, fever, headache, or melena. Review of Systems Review of Systems: All systems reviewed & are unremarkable except as noted in Subjective Physical Exam Physical Exam: awake/alert Respiratory: no respiratory distress Cardiovascular: RRR, no murmur, no edema Gastrointestinal (Abdomen): Inspection/Auscultation: + abdominal surgical scar (infraumbilical midline scar & laparoscopic scars from prior surg hx.); abdomen not distended Percussion/Palpation: abdomen soft; abdomen nontender, no guarding and abdomen not firm Results & Data ([facility]) Vital Signs (Past 12 Hours) Vital Signs Temp Pulse Resp BP Pulse Ox 02/06/21 07:52 36.2 C L 87 16 127/98 97 02/05/21 22:38 36.6 C 90 15 155/89 H 97 Laboratory Results Laboratory Results WBC 15.07 K/uL (4.8-10.8) H 02/06/21 14:15 RBC 4.37 M/uL (4.2-5.4) 02/06/21 14:15 Hgb 9.1 g/dL (12.0-16.0) L 02/06/21 14:15 Hct 31.1 % (37-47) L 02/06/21 14:15 MCV 71.2 fL (80-100) L 02/06/21 14:15 MCH 20.8 pg (25-34) L 02/06/21 14:15 MCHC 29.3 g/dL (32-36) L 02/06/21 14:15 RDW Std Deviation 54.1 fL (36.4-46.3) H 02/06/21 14:15 RDW Coeff of [place] 21.0 % (11.5-14.5) H 02/06/21 14:15 Plt Count 337 K/uL (130-400) 02/06/21 14:15 MPV 9.1 fL (7.4-10.4) 02/06/21 14:15 Immature Gran % (Auto) 4.3 % 02/06/21 14:15 Neut % (Auto) 76.1 % 02/06/21 14:15 Lymph % (Auto) 10.3 % 02/06/21 14:15 [place] % (Auto) 8.8 % 02/06/21 14:15 Eos % (Auto) 0.3 % 02/06/21 14:15 Baso % (Auto) 0.2 % 02/06/21 14:15 Neut # (Auto) 11.46 K/uL (1.4-6.5) H 02/06/21 14:15 Lymph # (Auto) 1.55 K/uL (1.2-3.4) 02/06/21 14:15 [place] # (Auto) 1.33 K/uL (0.11-0.59) H 02/06/21 14:15 Eos # (Auto) 0.05 K/uL (0-0.5) 02/06/21 14:15 Baso # (Auto) 0.03 K/uL (0-0.2) 02/06/21 14:15 Immature Gran # (Auto) 0.65 K/uL (0.00-0.02) H 02/06/21 14:15 Absolute Nucleated RBC 0.13 K/uL (0-0) H 02/06/21 14:15 Nucleated RBC % (auto) 0.8 % 02/06/21 14:15 Neutrophils % (Manual) Cancelled 02/06/21 09:16 Band Neutrophils % Cancelled 02/06/21 09:16 Lymphocytes % (Manual) Cancelled 02/06/21 09:16 Prolymphocyte % Cancelled 02/06/21 09:16 Reactive Lymphs % (Man) Cancelled 02/06/21 09:16 Monocytes % (Manual) Cancelled 02/06/21 09:16 Eosinophils % (Manual) Cancelled 02/06/21 09:16 Basophils % (Manual) Cancelled 02/06/21 09:16 Metamyelocytes % (Man) Cancelled 02/06/21 09:16 Myelocytes % (Man) Cancelled 02/06/21 09:16 Promyelocytes % (Man) Cancelled 02/06/21 09:16 Blast Cells % (Manual) Cancelled 02/06/21 09:16 Plasma Cell % (Manual) Cancelled 02/06/21 09:16 Other Cells % Cancelled 02/06/21 09:16 Nucleated RBC % Cancelled 02/06/21 09:16 Neutrophils # (Manual) Cancelled 02/06/21 09:16 Band Neutrophils # Cancelled 02/06/21 09:16 Total Absolute Neuts Cancelled 02/06/21 09:16 Lymphocytes # (Manual) Cancelled 02/06/21 09:16 Prolymphocyte # Cancelled 02/06/21 09:16 Reactive Lymphs # Cancelled 02/06/21 09:16 Total Abs Lymphocytes Cancelled 02/06/21 09:16 Monocytes # (Manual) Cancelled 02/06/21 09:16 Eosinophils # (Manual) Cancelled 02/06/21 09:16 Basophils # (Manual) Cancelled 02/06/21 09:16 Metamyelocytes # (Man) Cancelled 02/06/21 09:16 Myelocytes # (Manual) Cancelled 02/06/21 09:16 Promyelocytes # (Man) Cancelled 02/06/21 09:16 Blast Cells # (Man) Cancelled 02/06/21 09:16 Plasma Cell # (Manual) Cancelled 02/06/21 09:16 Other Cells # Cancelled 02/06/21 09:16 Nucleated RBCs # (Man) Cancelled 02/06/21 09:16 Hypersegmented Neuts Cancelled 02/06/21 09:16 Hyposegmented Neuts Cancelled 02/06/21 09:16 Hypogranular Neuts Cancelled 02/06/21 09:16 Large Granular Lymphs Cancelled 02/06/21 09:16 # Lrg Granular Lymphs Cancelled 02/06/21 09:16 Hairy Cells Cancelled 02/06/21 09:16 Smudge Cells Cancelled 02/06/21 09:16 Toxic Granulation Cancelled 02/06/21 09:16 Toxic Vacuolation Cancelled 02/06/21 09:16 Dohle Bodies Cancelled 02/06/21 09:16 Flower Rods Cancelled 02/06/21 09:16 Platelet Estimate Cancelled 02/06/21 09:16 Hypogranular Platelets Cancelled 02/06/21 09:16 Clumped Platelets Cancelled 02/06/21 09:16 Giant Platelets Cancelled 02/06/21 09:16 Platelet Satelliting Cancelled 02/06/21 09:16 RBC Morphology Cancelled 02/06/21 09:16 Polychromasia 1+ 02/06/21 14:15 Hypochromasia Present 02/06/21 14:15 Poikilocytosis Cancelled 02/06/21 09:16 Basophilic Stippling Cancelled 02/06/21 09:16 Anisocytosis Present 02/06/21 14:15 Microcytosis Cancelled 02/06/21 09:16 Macrocytosis Cancelled 02/06/21 09:16 Spherocytes Cancelled 02/06/21 09:16 Pappenheimer Bodies Cancelled 02/06/21 09:16 Sickle Cells Cancelled 02/06/21 09:16 Target Cells Cancelled 02/06/21 09:16 Tear Drop Cells Cancelled 02/06/21 09:16 Ovalocytes Cancelled 02/06/21 09:16 Stomatocytes Cancelled 02/06/21 09:16 Marcum-Sulphur Bodies Cancelled 02/06/21 09:16 Echinocytes Cancelled 02/06/21 09:16 Acanthocytes (Spur) Cancelled 02/06/21 09:16 Rouleaux Cancelled 02/06/21 09:16 RBC Agglutinates Cancelled 02/06/21 09:16 Schistocytes Cancelled 02/06/21 09:16 RBC Morph Comment Cancelled 02/06/21 09:16 Peripher Smr Path Cons 02/04/21 07:18 Sezary Cell Cancelled 02/06/21 09:16 Sodium 142 mmol/L (136-145) 02/06/21 09:16 Potassium 4.4 mmol/L (3.5-5.1) 02/06/21 09:16 Chloride 114 mmol/L (98-107) H 02/06/21 09:16 Carbon Dioxide 19 mmol/L (21-32) L 02/06/21 09:16 Anion Gap 9.0 (3-11) 02/06/21 09:16 BUN 18 mg/dl (7-18) 02/06/21 09:16 Creatinine 0.43 mg/dl (0.6-1.2) L 02/06/21 09:16 Est Cr Clr Drug Dosing 114.8 ml/min 02/06/21 09:16 Est GFR ( Amer) 118.6 ml/min 02/06/21 09:16 Est GFR (Non-Af Amer) 102.3 ml/min 02/06/21 09:16 BUN/Creatinine Ratio 42.8 (10-20) H 02/06/21 09:16 Glucose 80 mg/dl (70-99) 02/06/21 09:16 Calcium 8.8 mg/dl (8.5-10.1) 02/06/21 09:16 Phosphorus 2.6 mg/dl (2.5-4.9) 02/03/21 15:02 Magnesium 2.0 mg/dl (1.8-2.4) 02/06/21 09:16 Iron 15 mcg/dl (35-150) L 02/04/21 07:18 TIBC 390 mcg/dl (250-450) 02/04/21 07:18 Transferrin 322 mg/dl (200-360) 02/04/21 07:18 Ferritin 11.7 ng/ml (8-388) 02/04/21 07:18 Total Bilirubin 0.5 mg/dl (0.2-1) 02/06/21 09:16 AST 26 U/L (15-37) 02/06/21 09:16 ALT 22 U/L (12-78) 02/06/21 09:16 Alkaline Phosphatase 101 U/L (45-117) 02/06/21 09:16 Troponin I < 0.015 ng/ml (0-0.045) 02/03/21 15:02 Total Protein 6.7 gm/dl (6.4-8.2) 02/06/21 09:16 Albumin 2.9 gm/dl (3.4-5.0) L 02/06/21 09:16 Globulin 3.8 gm/dl (2.5-4.0) 02/06/21 09:16 Albumin/Globulin Ratio 0.8 (0.9-2) L 02/06/21 09:16 Lipase 63 U/L (73-393) L 02/03/21 15:02 COVID-19 Eval Order Covid19 at [facility] 02/03/21 17:31 SARS-CoV-2 (PCR) NEGATIVE (Negative) 02/03/21 17:31 Impressions Abdomen/Pelvis CT 02/03/21 14:48 CT SCAN OF THE ABDOMEN AND PELVIS WITHOUT CONTRAST CLINICAL HISTORY: abd pain, n/v/d COMPARISON STUDY: December 29, 2016 TECHNIQUE: CT scan of the abdomen and pelvis was performed from the lung bases to the proximal femurs. Images are reviewed in the axial, sagittal, and coronal planes. IV contrast was not administered for this examination. A dose lowering technique was utilized adhering to the principles of ALARA. CT DOSE: 542.28 mGy.cm FINDINGS: Lower chest: Large hiatal hernia, slightly worsened since prior with compressive atelectasis of surrounding lung parenchyma. Interval development of 5 mm pulmonary nodule within subpleural aspect of the left lower lobe (3/13) Liver: The unenhanced liver is normal in size, contour, and attenuation. There is no intrahepatic biliary ductal dilatation. Gallbladder: Is surgically absent Spleen: Normal in size and attenuation. Pancreas: Unremarkable. Adrenal glands: Unremarkable. Kidneys: The unenhanced kidneys are normal in size without hydronephrosis. There is no contour deforming renal mass lesion. No renal calculi are identified. Bowel: Status post partial colectomy. Anastomosis is seen within left lower quadrant (3/160) and shows collapsed lumen with proximal diffuse dilatation of the small bowel loops and multiple areas of gas fluid level. Loops of small bowel measure up to 4.5 cm in diameter. Peritoneum: No free intra-abdominal gas is seen. Diffuse mesenteric edema. No evidence of ascites. Vasculature: Abdominal aorta is normal in caliber with scattered calcifications of its wall. Adenopathy: None. Pelvic viscera: Urinary bladder is partially decompressed which limits evaluation. Uterus is surgically absent. Skeletal structures: Mild osteopenia. Multilevel degenerative changes of the spine. Mild anterolisthesis of L4 on L5. IMPRESSION: 1. High-grade small bowel obstruction. Transition zone is seen within site of surgical anastomosis within left lower quadrant. No free intra-abdominal gas or ascites seen however there is diffuse mesenteric edema. Findings will be sent to emergency Department. 2. Large hiatal hernia. 3. Atherosclerosis. 4. Mild anterolisthesis of L4 on L5. 5. Status post hysterectomy. 6. 5 mm pulmonary nodule within left base. Further evaluation with CT of the chest without IV contrast on nonemergency basis is suggested. ACT 112: Positive. There are findings on this exam that require communication between the performing entity and the patient following Patient Test Result Information Act ([place] Act 112) guidelines. The above report was generated using voice recognition software. It may contain grammatical, syntax or spelling errors. Electronically signed by: Jovita Alan DO 02/03/2021 4:23 PM KUB X-Ray 02/05/21 07:00 KUB HISTORY: Small bowel obstruction. Follow-up. COMPARISON: KUB 02/04/2021. FINDINGS: Progressive dilatation of the dilated gas-filled loop of small bowel within the abdomen. The transition point appears to be located within the lower pelvis. Small bowel loops measure up to 5.4 cm in diameter, previously measuring 4.8 cm. There are surgical clips and suture material within the abdomen and pelvis. Nasogastric tube terminates in the mid stomach. Hiatus hernia. No renal calculi. No ureteral calculi. No pneumoperitoneum or pneumatosis. IMPRESSION: Progressive high-grade small bowel obstruction as described above. ACT 112: Negative or not required by law. Electronically signed by: Arthur Sanabria M.D. 02/05/2021 9:25 AM Medications Administered Current Inpatient Medications Acetaminophen (Acetaminophen 1000 Mg/100 Ml Iv) 1,000 mg IV Q8H PRN PRN Reason: Pain or Fever Stop: 02/06/21 20:45 Last Admin: 02/04/21 01:42 Dose: 1,000 mg Documented by: Famotidine 20 mg/ Syringe 5 mls @ 2.5 mls/min IV Q12H ROSAURA Stop: 03/05/21 20:59 Last Admin: 02/06/21 09:41 Dose: 2.5 mls/min Documented by: Potassium Chloride/Sodium Chloride (Normal Saline W/20 Meq Kcl) 20 meq in 1,000 mls @ 100 mls/hr IV .Q10H ROSAURA Stop: 03/05/21 23:14 Last Admin: 02/06/21 11:22 Dose: 100 mls/hr Documented by: Lorazepam (Ativan) 0.5 mg in 1 mls @ 1 mls/min IV Q4H PRN PRN Reason: Anxiety Stop: 03/08/21 11:19 Iron Sucrose 300 mg/ Sodium (Chloride) 265 mls @ 176.667 mls/hr IV ONE ONE Stop: 02/06/21 15:44 Last Admin: 02/06/21 14:28 Dose: 176.7 mls/hr Documented by: Ketorolac Tromethamine (Ketorolac Tromethamine 15 Mg/Ml Vial) 15 mg IV Q6H PRN PRN Reason: Moderate Pain Stop: 02/08/21 20:45 Last Admin: 02/05/21 07:52 Dose: 15 mg Documented by: Ondansetron HCl (Ondansetron Inj 2 Mg/Ml 2 Ml Vial) 4 mg IV Q6H PRN PRN Reason: Nausea Stop: 03/05/21 20:45 Timolol Maleate (Timolol Maleate 0.5% Op Soln 5 Ml Btl) 1 drops OP DAILY ROSAURA Stop: 03/06/21 08:59 Last Admin: 02/06/21 09:38 Dose: 1 drops Documented by:
--- NOTE | 2021-02-06 08:45 | Surgery Progress Note ---
Date of Service February 06, 2021 Assessment & Plan (1) Small bowel obstruction: Plan: -Remove NGT -Start clears -Encourage ambulation -If she fails diet she may require surgical exploration Admission and Anticipated Discharge Date Admission Date: February 03, 2021 Subjective Pt seen and examined. Tolerating sips and chips with tube clamped. Afebrile. No abdominal pain. No N/V. She is passing flatus and having BM's Review of Systems Constitutional: no fever and no chills Physical Exam Gastrointestinal (Abdomen): Inspection/Auscultation: abdomen not distended Percussion/Palpation: abdomen soft; abdomen nontender Results & Data ([facility]) Vital Signs (Past 12 Hours) Vital Signs Temp Pulse Resp BP Pulse Ox 02/06/21 07:52 36.2 C L 87 16 127/98 97 02/05/21 22:38 36.6 C 90 15 155/89 H 97 PG Care Time/CCT Total # of Minutes Spent Total Time Spent with Patient: Total time spent is greater than 50% in coordination of care (as documented) at patient's floor/unit and/or counseling patient: Coding Level of Care Code 21411 Subseq Hosp Care Lvl 1 Diagnoses Small bowel obstruction K56.609
--- NOTE | 2021-02-06 09:28 | Gastroenterology Progress Note ---
Date of Service February 06, 2021 Assessment & Plan (1) Small bowel obstruction: Plan: Continue recommendations per surgery. If SBO resolves, then recommend SBFT as outpt to see if fixed stricture is present. If SBO persists or fails to improve then patient will need surgery. She indicated wishing Dr Spencer from colorectal surgery at [facility] and I told her if she does need surgery she could be transferred to [place] if she desires. Please refer to supervising physician addendum for further recommendations. Admission and Anticipated Discharge Date Admission Date: February 03, 2021 Supervising Physician Co-Signing Physician Notes I interviewed and examined the patient and reviewed the medical record, with the following observations: Subjective: NG tube removed this morning, patient has been drinking limited amounts of clear liquids today, with nausea and bloating but no vomiting, intake is limited. She continues to pass flatus and small quantities of stool Physical Examination: Hypoactive bowel sounds today, and mild distention Chart Review: This case was reviewed with the advanced practice provider I agree with the assessment as outlined in this consultation, with the following observations: Ileus picture, which is slowly improving I agree with the plan of care as outlined in this consultation, with the following changes and/or additions: Agree with plan per surgery team, no additional recommendations at this time. Subjective Patient reports she got some sleep last night. NGT intact in right nare. + flatus. Bowel movement this morning. Denies nausea or vomiting. No fever through the night. Review of Systems Review of Systems: All systems reviewed & are unremarkable except as noted in HPI & below Physical Exam Gastrointestinal (Abdomen): Inspection/Auscultation: abdomen normal to inspection and normal bowel sounds Percussion/Palpation: abdomen soft and + tympanic to percussion; abdomen nontender and abdomen not rigid Results & Data ([place]) Vital Signs (Past 12 Hours) Vital Signs Temp Pulse Resp BP Pulse Ox 02/06/21 07:52 36.2 C L 87 16 127/98 97 02/05/21 22:38 36.6 C 90 15 155/89 H 97 Laboratory Results Laboratory Results - last 24 hr 02/06/21 02/06/21 09:16 09:16 WBC Pending RBC Pending Hgb Pending Hct Pending MCV Pending MCH Pending MCHC Pending Plt Count Pending Sodium Pending Potassium Pending Chloride Pending Carbon Dioxide Pending Anion Gap Pending BUN Pending Creatinine Pending Est Cr Clr Drug Dosing Pending Est GFR ( Amer) Pending Est GFR (Non-Af Amer) Pending BUN/Creatinine Ratio Pending Glucose Pending Calcium Pending Magnesium Pending Total Bilirubin Pending AST Pending ALT Pending Alkaline Phosphatase Pending Total Protein Pending Albumin Pending Globulin Pending Albumin/Globulin Ratio Pending Addendum (Blank) Addendum February 06, 2021 17:37
[2021-02-06] MEDS: TIMOLOL MALEATE 0.5% OP SOLN 5 ML BTL OP SCH (09:38)
[2021-02-06] MEDS: FAMOTIDINE 20 MG in SYRINGE 3 ML IV SCH ×2 (09:41→20:06)
[2021-02-06 09:46] LABS: Albumin Level 2.9 gm/dl (3.4-5.0); BUN Creatinine Ratio 42.8 (10-20); Calcium 8.8 mg/dl (8.5-10.1); Creatinine Clr Calc Pharmacy 114.8 ml/min; Est GFR (African American) 118.6 ml/min; Est GFR (Non-African American) 102.3 ml/min; Potassium 4.4 mmol/L (3.5-5.1)
[2021-02-06 09:48] LABS: Albumin Globulin Ratio 0.8 (0.9-2); Bilirubin,Total 0.5 mg/dl (0.2-1); Globulin 3.8 gm/dl (2.5-4.0); Total Protein 6.7 gm/dl (6.4-8.2)
[2021-02-06 10:27] LABS: Hematocrit (blood only) 30.7 % (37-47); Hemoglobin 8.8 g/dL (12.0-16.0); Mean Corpuscular Hemoglobin 20.8 pg (25-34); Mean Corpuscular Hgb Conc 28.7 g/dL (32-36); Mean Corpuscular Volume 72.4 fL (80-100); Mean Platelet Volume 8.8 fL (7.4-10.4); Nucleated RBC % (auto) 0.7 %; Platelet Count 306 K/uL (130-400); RDW Coefficient of Variation 21.1 % (11.5-14.5); RDW Standard Deviation 55.6 fL (36.4-46.3); Red Blood Count 4.24 M/uL (4.2-5.4); White Blood Count 13.38 K/uL (4.8-10.8)
[2021-02-06 10:53] LABS: Anisocytosis Present; Basophils # (auto) 0.02 K/uL (0-0.2); Basophils % (auto) 0.1 %; Eosinophils # (auto) 0.02 K/uL (0-0.5); Eosinophils % (auto) 0.1 %; Hypochromasia Present; Immature Granulocytes # (auto) 0.73 K/uL (0.00-0.02); Immature Granulocytes % (auto) 5.5 %; Lymphocytes # (auto) 1.23 K/uL (1.2-3.4); Lymphocytes % (auto) 9.2 %; Monocytes % (auto) 9.7 %; Neutrophils # (auto) 10.08 K/uL (1.4-6.5); Neutrophils % (auto) 75.4 %; Polychromasia 1+
[2021-02-06] MEDS ORDERED: LORazepam 0.5 MG/1 ML VIAL IV PRN (11:20)
[2021-02-06] MEDS ORDERED: IRON SUCROSE 300 MG in SODIUM CHLORIDE 0.9% 250 ML IV ONE (14:15)
[2021-02-06 14:29] LABS: Hematocrit (blood only) 31.1 % (37-47); Hemoglobin 9.1 g/dL (12.0-16.0); Mean Corpuscular Hemoglobin 20.8 pg (25-34); Mean Corpuscular Hgb Conc 29.3 g/dL (32-36); Mean Corpuscular Volume 71.2 fL (80-100); Mean Platelet Volume 9.1 fL (7.4-10.4); Nucleated RBC # (auto) 0.13 K/uL (0-0); Nucleated RBC % (auto) 0.8 %; Platelet Count 337 K/uL (130-400); RDW Standard Deviation 54.1 fL (36.4-46.3); Red Blood Count 4.37 M/uL (4.2-5.4); White Blood Count 15.07 K/uL (4.8-10.8)
[2021-02-06 14:49] LABS: Anisocytosis Present; Basophils # (auto) 0.03 K/uL (0-0.2); Basophils % (auto) 0.2 %; Eosinophils # (auto) 0.05 K/uL (0-0.5); Eosinophils % (auto) 0.3 %; Hypochromasia Present; Immature Granulocytes # (auto) 0.65 K/uL (0.00-0.02); Immature Granulocytes % (auto) 4.3 %; Lymphocytes # (auto) 1.55 K/uL (1.2-3.4); Lymphocytes % (auto) 10.3 %; Monocytes # (auto) 1.33 K/uL (0.11-0.59); Monocytes % (auto) 8.8 %; Neutrophils # (auto) 11.46 K/uL (1.4-6.5); Neutrophils % (auto) 76.1 %; Polychromasia 1+
[2021-02-07 06:26] LABS: Hematocrit (blood only) 27.7 % (37-47); Mean Corpuscular Hemoglobin 20.7 pg (25-34); Mean Corpuscular Hgb Conc 28.9 g/dL (32-36); Mean Corpuscular Volume 71.6 fL (80-100); Nucleated RBC # (auto) 0.15 K/uL (0-0); Nucleated RBC % (auto) 1.2 %; Platelet Count 285 K/uL (130-400); RDW Coefficient of Variation 21.1 % (11.5-14.5); RDW Standard Deviation 54.3 fL (36.4-46.3); Red Blood Count 3.87 M/uL (4.2-5.4); White Blood Count 12.81 K/uL (4.8-10.8)
--- NOTE | 2021-02-07 06:52 | Hospitalist Progress Note ---
Date of Service February 07, 2021 Assessment & Plan (1) Small bowel obstruction: Plan: Small bowel obstruction - Patient clinically improving, SBO appears to be resolving - NG tube removed - Diet advancement per surgery - Most recent KUB: progression of SBO; located in LLQ - Mild pain control with Acetaminophen 1 g IV q8h - Moderate pain control with Toradol 15 mg IV q6h - Continue Famotidine 20 mg IV q12h Microcytic anemia - Hgb: 8.8, MCV: 72.4; low iron and low ferritin found in earlier labs this week, concerning for iron deficiency anemia - Received IVF; remeasured Hgb: 9.1 - Receiving 300 mg IV Iron infusion - Etiology unclear, but likely secondary to poor absorption from multiple abdominal surgeries - IV Iron infusion likely repeated weekly for the next month - Peripheral smear findings earlier this week: not concerning for blasts or schistocytes, strongly suggesting iron deficiency anemia - Trend CBC Leukocytosis -WBC (02/06): 13.28 (vs. 9.28 on 02/05), repeat WBC (02/07): 12.8 -Etiology unknown, could be secondary to bowel inflammation from SBO -Hemodynamically stable, asymptomatic; continue to monitor -Trend CBC Weakness -Patient endorses mild weakness with exertion (02/07) -PT/OT ordered DVT PPx: SCDs FEN/GI: Clears, advance as tolerated Code: Full Status: Med/Surg Admission and Anticipated Discharge Date Admission Date: February 03, 2021 Supervising Physician Co-Signing Physician Notes Attending attestation Pt seen and examined in concert with Dr. Brothers. In agreement with the do cumented findings as noted in the resident documentation with any exceptions or additions as noted here. Significant increase in bowel movements described as fairly urgent, liquid and intermittently "frog green" colored which have begun to occur following increased PO intake. Has been taking in a considerable amt of sugar (juices, popsicles, etc). Intermittent cramping abdominal pain resolved with BM, more mild than previous. On examination, S1/S2 nl RRR no MCG. CTAB. Abd mild TTP diffusely, persistent distention improved from previous. BS+ve High grade SBO s/p NGT with diarrhea - continue ondansetron. Continue gradual advance of diet. Counseling re: glucose intake and osmotic laxative effect of same with tempering of intake recommended. Consider stool testing with ongoing/worsening sx. Leukocytosis - afebrile and without complaint, may be resolving stercoral colitis. Monitor/trend. Fe deficiency anemia - monitor CBC Else see resident/student documentation as noted. Subjective Patient seen and evaluated at bedside this morning. No acute events overnight. Patient had 3-4 large BMs this morning and reports feeling much better. Endorses minimal abdominal pain. Denies CP, SOB, nausea, vomiting, fever, or chills. Review of Systems Review of Systems: See HPI Physical Exam Physical Exam: Constitutional: well-appearing, no acute distress CV: regular rhythm, no murmur appreciated, extremities well-perfused, no LE edema Resp: CTABL, no wheezes/rales/rhonchi appreciated, no increased work of breathing GI: soft, nondistended, minimal generalized tenderness to palpation, BS present Skin: warm, dry, no rash appreciated Neuro: AOx4, no focal neurological deficits appreciated Results & Data Results & Data ([facility]) Vital Signs (Past 12 Hours) Vital Signs Temp Pulse Resp BP Pulse Ox 02/06/21 23:36 37.1 C 80 16 133/72 97 Resident Activity Tracking Resident Involvement: Resident Care Provided Care Provided: Adult Hospital Medicine
[2021-02-07 07:05] LABS: Anisocytosis Present; Basophils # (auto) 0.03 K/uL (0-0.2); Basophils % (auto) 0.2 %; Eosinophils % (auto) 0.8 %; Immature Granulocytes # (auto) 1.11 K/uL (0.00-0.02); Immature Granulocytes % (auto) 8.7 %; Lymphocytes # (auto) 1.93 K/uL (1.2-3.4); Lymphocytes % (auto) 15.1 %; Monocytes # (auto) 1.15 K/uL (0.11-0.59); Neutrophils # (auto) 8.49 K/uL (1.4-6.5); Neutrophils % (auto) 66.2 %; Polychromasia 1+
[2021-02-07] MEDS: NSS + 20MEQ KCL 20 MEQ/1,000 ML BAG IV SCH (09:13)
[2021-02-07] MEDS: TIMOLOL MALEATE 0.5% OP SOLN 5 ML BTL OP SCH (10:01)
[2021-02-07] MEDS: FAMOTIDINE 20 MG in SYRINGE 3 ML IV SCH ×2 (10:04→22:14)
--- NOTE | 2021-02-07 10:48 | Gastroenterology Progress Note ---
Date of Service February 07, 2021 Assessment & Plan (1) Small bowel obstruction: Plan: Slowly resolving distal small bowel obstruction Plan: Agree with treatment plan per the general surgery team. GI service will discontinue daily coverage and we will consult as requested Admission and Anticipated Discharge Date Admission Date: February 03, 2021 Subjective Patient reports passing frequent [place] Scale type 6-7 bowel movements overnight and this morning, passing flatus no nausea/vomiting with clear liquid diet, intake is limited by bloating discomfort Review of Systems Review of Systems: All systems reviewed & are unremarkable except as noted in Subjective Physical Exam Constitutional: Denies fever, chills, malaise. Well rested this morning, anxious about frequent diarrhea episodes Respiratory: normal respiratory effort Cardiovascular: RRR, no murmur, no edema Gastrointestinal (Abdomen): Mild abdominal distension with hypoactive bowel sounds, no localized guarding, slight diffuse tenderness to palpation Neurologic: No focal neurologic signs Results & Data ([facility]) Vital Signs (Past 12 Hours) Vital Signs Temp Pulse Resp BP Pulse Ox 02/07/21 07:14 36.7 C 75 16 154/87 H 96 02/06/21 23:36 37.1 C 80 16 133/72 97
--- NOTE | 2021-02-07 11:27 | Surgery Progress Note ---
Date of Service February 07, 2021 Assessment & Plan (1) Small bowel obstruction: Plan: sbo, appears to be resolving. Slowly advance diet as tolerated Will offer full liquids if patient feeling well this afternoon Admission and Anticipated Discharge Date Admission Date: February 03, 2021 Subjective 70 y/o female with sbo secondary to adhesions. passing flatus and multiple liquid bm's. tolerated some clears, but not hungry Physical Exam Constitutional: WD/WN, vitals as above Gastrointestinal (Abdomen): normal bowel sounds, soft, nontender, no hepatosplenomegaly Inspection/Auscultation: + abdomen distended (mild) and + abdominal surgical scar Results & Data ([facility]) Vital Signs (Past 12 Hours) Vital Signs Temp Pulse Resp BP Pulse Ox 02/07/21 07:14 36.7 C 75 16 154/87 H 96 02/06/21 23:36 37.1 C 80 16 133/72 97 PG Care Time/CCT Total # of Minutes Spent Total Time Spent with Patient: Total time spent is greater than 50% in coordination of care (as documented) at patient's floor/unit and/or counseling patient: Coding Level of Care Code 19517 Inpt Consult Level 3 Diagnoses Small bowel obstruction K56.609
[2021-02-08 06:20] LABS: Hematocrit (blood only) 30.1 % (37-47); Hemoglobin 8.8 g/dL (12.0-16.0); Mean Corpuscular Hemoglobin 20.8 pg (25-34); Mean Corpuscular Hgb Conc 29.2 g/dL (32-36); Nucleated RBC # (auto) 0.15 K/uL (0-0); Nucleated RBC % (auto) 1.6 %; Platelet Count 287 K/uL (130-400); RDW Coefficient of Variation 21.1 % (11.5-14.5); RDW Standard Deviation 53.2 fL (36.4-46.3); Red Blood Count 4.24 M/uL (4.2-5.4); White Blood Count 9.73 K/uL (4.8-10.8)
[2021-02-08 06:42] LABS: BUN Creatinine Ratio 25.9 (10-20); Calcium 8.7 mg/dl (8.5-10.1); Est GFR (African American) 126.9 ml/min; Est GFR (Non-African American) 109.5 ml/min; Potassium 3.3 mmol/L (3.5-5.1)
[2021-02-08 06:44] LABS: ALC (manual) 2.67 K/uL (1.2-3.4); ANC (manual) 4.99 K/uL (1.4-6.5); Anisocytosis Present; Eosinophils # (manual) 0.18 K/uL (0-0.5); Eosinophils % (manual) 1.8 %; Lymphocytes # (manual) 2.67 K/uL (1.2-3.4); Lymphocytes % (manual) 27.4 %; Metamyelocytes # (manual) 0.34 K/uL (0-0); Metamyelocytes % (manual) 3.5 %; Monocytes # (manual) 0.78 K/uL (0.11-0.59); Myelocytes # (manual) 0.78 K/uL (0-0); Neutrophils # (manual) 4.99 K/uL (1.4-6.5); Neutrophils % (manual) 51.3 %; Ovalocytes 1+; Tear Drop Cells 1+
--- NOTE | 2021-02-08 06:44 | Hospitalist Progress Note ---
Date of Service February 08, 2021 Assessment & Plan (1) Small bowel obstruction: Plan: Small bowel obstruction - Patient clinically improving, SBO appears to be resolving - NG tube removed; diet advancement per surgery - Mild pain control with Acetaminophen 1 g IV q8h - Moderate pain control with Toradol 15 mg IV q6h - Continue Famotidine 20 mg IV q12h Diarrhea - Multiple loose stools on 02/07 and 02/08 - Does not seem like C. diff, but will test to make sure; test ordered and pending - No other signs at this time of infectious source Leukocytosis: resolved -WBC (02/06): 13.28 improved to 9.7 (02/08) -Etiology unknown, could be secondary to bowel inflammation from SBO -Hemodynamically stable, asymptomatic; continue to monitor -Trend CBC Microcytic anemia - Hgb: 8.8, MCV: 72.4; low iron and low ferritin found in earlier labs this week, concerning for iron deficiency anemia - Received IVF; remeasured Hgb: 9.1 - Received 300mg IV iron infusion - Etiology unclear, but likely secondary to poor absorption from multiple abdominal surgeries - IV iron infusion likely repeated weekly for the next month - Peripheral smear findings earlier this week: not concerning for blasts or schistocytes, strongly suggesting iron deficiency anemia - Trend CBC Weakness -Patient endorses mild weakness with exertion (02/07) -PT/OT ordered DVT PPx: SCDs FEN/GI: Clears, advance as tolerated Code: Full Status: Med/Surg Admission and Anticipated Discharge Date Admission Date: February 03, 2021 Supervising Physician Co-Signing Physician Notes Attending attestation Pt seen and examined in concert with Dr. Brothers. In agreement with the documented findings as noted in the resident documentation with any exceptions or additions as noted here. Ongoing intermittent cramping abdominal pain and bowel movement urgency in the setting of full liquid diet with high glucose consumption without foul odor or mucous On examination, S1/S2 nl RRR no MCG. CTAB. Abd mild TTP diffusely, distention. BS+ve New onset diarrhea - C. diff testing High grade SBO s/p NGT - continue ondansetron. Continue gradual advance of diet. Leukocytosis - afebrile and without complaint, may be resolving stercoral colitis. Monitor/trend. Fe deficiency anemia - monitor CBC Else see resident/student documentation as noted. Subjective Patient seen and evaluated at bedside this morning. No acute events overnight. Patient continues to have loose BMs, reporting about 12 yesterday and 4 so far this morning. Denies abdominal discomfort or pain. Other than frequent loose stools, feels well and is eager to go home. Patient denies CP, SOB, nausea, vomiting, lightheadedness, and dizziness. Review of Systems Review of Systems: See HPI Physical Exam Physical Exam: Constitutional: well-appearing, no acute distress CV: regular rhythm, no murmur appreciated, extremities well-perfused, no LE edema Resp: CTABL, no wheezes/rales/rhonchi appreciated, no increased work of breathing GI: soft, nondistended, nontender, BS present Skin: warm, dry, no rash appreciated Neuro: AOx4, no focal neurological deficits appreciated Results & Data Results & Data ([facility]) Vital Signs (Past 12 Hours) Vital Signs Temp Pulse Resp BP Pulse Ox 02/07/21 23:24 36.8 C 82 16 142/81 H 95 Resident Activity Tracking Resident Involvement: Resident Care Provided Care Provided: Adult Hospital Medicine
[2021-02-08] MEDS: TIMOLOL MALEATE 0.5% OP SOLN 5 ML BTL OP SCH (08:53)
[2021-02-08] MEDS: FAMOTIDINE 20 MG in SYRINGE 3 ML IV SCH ×2 (08:53→21:00)
--- NOTE | 2021-02-08 09:14 | Surgery Progress Note ---
Date of Service February 08, 2021 Assessment & Plan (1) Small bowel obstruction: Plan: improving can begin low fiber diet seen with Dr. Roth Admission and Anticipated Discharge Date Admission Date: February 03, 2021 Supervising Physician Co-Signing Physician Notes pnt S&E, agree with above. sbo, having loose bm's and tolerating liquids. Advance to low fiber, advised to take it slow. Subjective multiple loose BMs continue, increasing flatus, not much appetite but no nausea Physical Exam Gastrointestinal (Abdomen): Inspection/Auscultation: abdomen not distended Percussion/Palpation: abdomen soft; abdomen nontender Results & Data ([facility]) Vital Signs (Past 12 Hours) Vital Signs Temp Pulse Resp BP Pulse Ox 02/08/21 07:50 36.7 C 89 16 153/90 H 98 02/07/21 23:24 36.8 C 82 16 142/81 H 95 PG Care Time/CCT Total # of Minutes Spent Total Time Spent with Patient: Total time spent is greater than 50% in coordination of care (as documented) at patient's floor/unit and/or counseling patient: Coding Level of Care Code 17945 Subseq Hosp Care Lvl 1 Diagnoses Small bowel obstruction K56.609
[2021-02-09 06:40] LABS: Basophils # (auto) 0.01 K/uL (0-0.2); Basophils % (auto) 0.1 %; Eosinophils # (auto) 0.08 K/uL (0-0.5); Hematocrit (blood only) 31.4 % (37-47); Hemoglobin 9.4 g/dL (12.0-16.0); Immature Granulocytes # (auto) 0.38 K/uL (0.00-0.02); Immature Granulocytes % (auto) 4.6 %; Lymphocytes # (auto) 1.96 K/uL (1.2-3.4); Lymphocytes % (auto) 23.7 %; Mean Corpuscular Hemoglobin 21.3 pg (25-34); Mean Corpuscular Hgb Conc 29.9 g/dL (32-36); Mean Platelet Volume 8.6 fL (7.4-10.4); Monocytes # (auto) 0.76 K/uL (0.11-0.59); Monocytes % (auto) 9.2 %; Neutrophils # (auto) 5.07 K/uL (1.4-6.5); Neutrophils % (auto) 61.4 %; Platelet Count 281 K/uL (130-400); RDW Coefficient of Variation 20.7 % (11.5-14.5); RDW Standard Deviation 52.8 fL (36.4-46.3); Red Blood Count 4.42 M/uL (4.2-5.4); White Blood Count 8.26 K/uL (4.8-10.8)
[2021-02-09 07:07] LABS: Anisocytosis Present; Hypochromasia Present; Microcytosis Present; Polychromasia 1+
[2021-02-09 07:13] LABS: BUN Creatinine Ratio 16.9 (10-20); Calcium 8.4 mg/dl (8.5-10.1); Creatinine Clr Calc Pharmacy 114.8 ml/min; Est GFR (African American) 118.6 ml/min; Est GFR (Non-African American) 102.3 ml/min; Potassium 2.9 mmol/L (3.5-5.1)
[2021-02-09] MEDS ORDERED: POTASSIUM CHLORIDE CRTAB 20 MEQ TABCR PO STA (08:27)
[2021-02-09] MEDS: FAMOTIDINE 20 MG in SYRINGE 3 ML IV SCH ×2 (09:16→21:07)
[2021-02-09] MEDS: TIMOLOL MALEATE 0.5% OP SOLN 5 ML BTL OP SCH (09:17)
--- NOTE | 2021-02-09 09:57 | Surgery Progress Note ---
Date of Service February 09, 2021 Assessment & Plan (1) Small bowel obstruction: Plan: -She is tolerating a diet without emesis -Its tough to know what her baseline is as with most of her colon removed she certainly will have more frequent loose BM's -She also has a large hiatal hernia which could be contributing to her upper abdominal gas/discomfort immediately after eating -Would continue her low fiber diet and as long as she is able to have small meals without emesis and continues to have bowel function she can be discharged -I would have her follow up with her colorectal surgeon in [place] upon discharge as in some cases they are able to dilate the anastomosis endoscopically for some relief -Will continue to follow while inpatient Admission and Anticipated Discharge Date Admission Date: February 03, 2021 Subjective Pt seen and examined. C/o intermittent nausea, no emesis. She is still having multiple BM's and having flatus. Afebrile. Review of Systems Constitutional: no fever and no chills Physical Exam Gastrointestinal (Abdomen): Inspection/Auscultation: abdomen not distended Percussion/Palpation: abdomen soft; abdomen nontender Results & Data ([facility]) Vital Signs (Past 12 Hours) Vital Signs Temp Pulse Resp BP Pulse Ox 02/09/21 08:08 36.8 C 84 18 143/82 H 98 02/09/21 00:13 36.6 C 87 16 134/73 97 PG Care Time/CCT Total # of Minutes Spent Total Time Spent with Patient: Total time spent is greater than 50% in coordination of care (as documented) at patient's floor/unit and/or counseling patient: Coding Level of Care Code 33005 Subseq Hosp Care Lvl 2 Diagnoses Small bowel obstruction K56.609
--- NOTE | 2021-02-09 10:11 | Hospitalist Progress Note ---
Date of Service February 09, 2021 Assessment & Plan (1) Small bowel obstruction: Plan: Latonia Benz is a 70-year-old female with past medical history of colectomy for treatment of Cortes syndrome. Small bowel obstruction - Patient clinically improving, SBO appears to be resolving - NG tube removed; diet advancement per surgery - Mild pain control with Acetaminophen 1 g IV q8h - Moderate pain control with Toradol 15 mg IV q6h - Continue Famotidine 20 mg IV [id number] abd discomfort more related to acid and will continue this for further reduction of GI inflammation Diarrhea - Multiple loose stools daily - C. 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 - Will plan to restart her cholestyramine when abd discomfort is better controlled as above Leukocytosis: resolved -WBC (02/06): 13.28 improved to 9.7 (02/08) -Etiology unknown, could be secondary to bowel inflammation from SBO -Hemodynamically stable, asymptomatic; continue to monitor -Trend CBC Microcytic anemia - Hgb: 8.8, MCV: 72.4; low iron and low ferritin found in earlier labs this week, concerning for iron deficiency anemia - Received IVF; remeasured Hgb: 9.1 - Received 300mg IV iron infusion x2 - Etiology unclear, but likely secondary to poor absorption from multiple abdominal surgeries - IV iron infusion likely repeated weekly for the next month - Peripheral smear findings earlier this week: not concerning for blasts or schistocytes, strongly suggesting iron deficiency anemia - Trend CBC Weakness -Patient endorses mild weakness with exertion (02/07) -PT/OT ordered--no needs identified DVT PPx: SCDs FEN/GI: Low fiber, advance as tolerated/per surgery Code: Full Dispo: Med/Surg Admission and Anticipated Discharge Date Admission Date: February 03, 2021 Supervising Physician Co-Signing Physician Notes I personally examined the patient and verified all bernard points of history and exam, discussed case, and agree with decision making with Dr Ledesma. Had abdominal pain after eating yesterday with a lot of reflux. That has not happened today. Having a lot of diarrhea. Notes that she chronically takes cholestyramine which seems to be related to short gut. Vitals noted, in general she is awake and alert pleasant no distress. HEENT normocephalic atraumatic mucous membranes are moist. Abdomen is soft nondistended may be mild diffuse tenderness but nothing rigid, no guarding rebound. Small bowel obstructionadhesionalimproving. Continue to follow how she tolerates diet. Hopefully home soon. Diarrheasome seems to be gastrocolic reflex as her intestines are opening up from the obstruction, some is undoubtedly short gut, but would hesitate to resume her cholestyramine until it is clear that her upper GI symptoms have resolved, so as to not exacerbate the situation with constipation. I suspect we will probably be able to do this by the end of the day or tomorrow. otherwise as above Subjective Patient seen at bedside this morning. She continues to report that she is tolerating her meals, though she does have gassy abdominal pain and continues to have multiple loose stools. No blood noted. Denies nausea, vomiting. Review of Systems Review of Systems: All systems reviewed & are unremarkable except as noted in Subjective Physical Exam Physical Exam: Constitutional: well-appearing, no acute distress CV: regular rhythm, no murmur appreciated, extremities well-perfused, no LE edema Resp: CTABL, no wheezes/rales/rhonchi appreciated, no increased work of breathing GI: soft, nondistended, nontender, BS present Skin: warm, dry, no rash appreciated Neuro: AOx4, no focal neurological deficits appreciated Results & Data Results & Data ([facility]) Vital Signs (Past 12 Hours) Vital Signs Temp Pulse Resp BP Pulse Ox 02/09/21 08:08 36.8 C 84 18 143/82 H 98 02/09/21 00:13 36.6 C 87 16 134/73 97 Resident Activity Tracking Resident Involvement: Resident Care Provided Care Provided: Adult Hospital Medicine
[2021-02-09] MEDS ORDERED: POTASSIUM CHLORIDE CRTAB 20 MEQ TABCR PO ONE (11:45)
--- NOTE | 2021-02-09 19:45 | Billing Data ---
Date of Service February 09, 2021 Coding Level of Care Code 12567 Subseq Hosp Care Lvl 2
[2021-02-10] MEDS ORDERED: COUGH DROP (SUGAR FREE) LOZ 24 LOZ/1 BOX BUCCAL ONE (05:26)
[2021-02-10 07:36] LABS: Basophils # (auto) 0.01 K/uL (0-0.2); Basophils % (auto) 0.1 %; Eosinophils # (auto) 0.09 K/uL (0-0.5); Eosinophils % (auto) 1.2 %; Hemoglobin 8.3 g/dL (12.0-16.0); Immature Granulocytes # (auto) 0.24 K/uL (0.00-0.02); Immature Granulocytes % (auto) 3.1 %; Lymphocytes # (auto) 1.73 K/uL (1.2-3.4); Lymphocytes % (auto) 22.6 %; Mean Corpuscular Hemoglobin 21.1 pg (25-34); Mean Corpuscular Hgb Conc 29.6 g/dL (32-36); Mean Corpuscular Volume 71.1 fL (80-100); Mean Platelet Volume 8.7 fL (7.4-10.4); Monocytes % (auto) 9.2 %; Neutrophils # (auto) 4.87 K/uL (1.4-6.5); Neutrophils % (auto) 63.8 %; Platelet Count 270 K/uL (130-400); RDW Coefficient of Variation 20.6 % (11.5-14.5); RDW Standard Deviation 51.4 fL (36.4-46.3); Red Blood Count 3.94 M/uL (4.2-5.4); White Blood Count 7.64 K/uL (4.8-10.8)
[2021-02-10 08:02] LABS: Anisocytosis Present; Hypochromasia Present; Microcytosis Present; Polychromasia 1+
[2021-02-10 08:08] LABS: BUN Creatinine Ratio 9.7 (10-20); Calcium 8.6 mg/dl (8.5-10.1); Creatinine Clr Calc Pharmacy 129.9 ml/min; Est GFR (African American) 123.5 ml/min; Est GFR (Non-African American) 106.6 ml/min; Potassium 3.2 mmol/L (3.5-5.1)
[2021-02-10] MEDS: FAMOTIDINE 20 MG in SYRINGE 3 ML IV SCH (08:41)
[2021-02-10] MEDS: TIMOLOL MALEATE 0.5% OP SOLN 5 ML BTL OP SCH (08:42)
--- NOTE | 2021-02-10 10:04 | Discharge Summary ---
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 She reports that the pain is gradually worsened over the past 2 days, and when she tries to eat anything resulted in nausea and vomiting. She has had persistent diarrhea during this interval as well. She denies any fevers or chills. Principal Diagnosis High-grade SBO Discharge Exam Cnstitutional: well-appearing, no acute distress CV: regular rhythm, no murmur appreciated, extremities well-perfused, no LE edema Resp: CTABL, no wheezes/rales/rhonchi appreciated, no increased work of breathing GI: soft, nondistended, nontender, BS present Skin: warm, dry, no rash appreciated Neuro: AOx4, no focal neurological deficits appreciated Discharge Data Allergies Allergy/AdvReac Type Severity Reaction Status Date / Time codeine Allergy Severe SHORTNESS Verified 02/07/21 18:42 OF BREATH morphine Allergy Severe SHORTNESS Verified 02/03/21 14:57 OF BREATH benzalkonium chloride AdvReac Mild EYE Verified 02/03/21 14:57 IRRITATION AND REDNESS travoprost AdvReac Mild EYE Verified 02/03/21 14:57 IRRITATION AND REDNESS chocolate flavor AdvReac Sneezing Verified 02/07/21 18:43 Consultations 02/03/21 17:03 ED Decision to Admit Stat 02/04/21 11:33 Consult Gastroenterology Routine Ordered Studies 02/03/21 14:48 CT abd pelvis wo con Stat Hospital Course (1) Small bowel obstruction: Latonia Benz is a 70-year-old female with past medical history of colectomy for treatment of Cortes syndrome. Small bowel obstruction - Patient clinically improving, SBO appears to be resolved - NG tube removed; diet advancement per surgery - Tolerating solid nutrition without n/v at DC - Plan to continue Famotidine 20 mg PO daily as needed at DC--suspect upper abd discomfort related to acid reflux in the setting of her hiatal hernia - Recommend f/u with colorectal surgeon per General Surgery recs as below: - Would have her follow up with her colorectal surgeon in [place] upon discharge as in some cases they are able to dilate the anastomosis endoscopically for some relief Diarrhea - Multiple loose stools daily - C. 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 - Restart home cholestyramine at DC Leukocytosis: resolved -WBC (02/06): 13.28 improved to 9.7 (02/08) -Etiology unknown, likely secondary to bowel inflammation from SBO -Hemodynamically stable, asymptomatic Microcytic anemia - Hgb: 8.8, MCV: 72.4; low iron and low ferritin found in earlier labs this week, concerning for iron deficiency anemia - Received IVF; remeasured Hgb: 9.1 - Received 300mg IV iron infusion x2 - Etiology unclear, but likely secondary to poor absorption from multiple abdominal surgeries - Recommend repeatin iron infusions vs oral iron supplementation as outpatient - Peripheral smear findings earlier this week: not concerning for blasts or schistocytes, strongly suggesting iron deficiency anemia Weakness -Patient endorsed mild weakness with exertion (02/07) -PT/OT ordered--no needs identified FEN/GI: Low fiber, advance as tolerated/per surgery Dispo: Home - Self Care Total Time Total Time Spent Total Time Spent (In Minutes): <30 Discharge Plan Discharge Items Patient Disposition: Home - Self-Care Reason For Visit: HIGH GRADE SBO Discharge Diagnosis: High grade SBO Condition on Discharge: Fair Activity: Per Instructions section Non-emergency contact: Primary Care Provider and Surgeon Call non-emergency contact if: you have any medication questions and your symptoms worsen Follow-up/Referrals: Curt Sanches MD [Primary Care Provider] - 02/17/21 10:30 am Diet: Low Fiber Addtl Attending Provider Instructions: You were admitted to [facility] due to a small bowel obstruction. As such, initially you were instructed not to consume any oral nutrition and a nasogastric tube was placed to help decompress your GI system. General surgery was consulted and continue to follow your case. They did not see any needs for surgical intervention as you continue to improve on conservative management. Eventually, your NG tube was able to be removed. Your oral nutrition was slowly advanced as you were able to tolerate and you eventually tolerated solid food without vomiting. You did report some upper abdominal discomfort, which is most likely related to your hiatal hernia and reflux symptoms related to that. As such, you were started on famotidine (brand name Pepcid) 20 mg orally daily. At discharge, we recommend that you continue to take this medication only on an as needed basis. In other words, if you do have any upper abdominal discomfort/acid reflux you may take one 20 mg pill for symptomatic relief. We also recommend that you avoid any very high-fiber supplements such as metamucil or very high-siber foods like bran cereals. Otherwise no real dietary modifications are required. We recommend that you follow-up with your primary care provider for continued management of your chronic conditions and medications. All your usual home medications will be restarted at discharge. Per general surgery recommendations, you should set up follow-up with your colorectal surgeon for discussion of your hospitalization. Additionally, while admitted you were found to have anemia caused by iron deficiency. You were treated with 2 doses of IV iron but will likely require more treatment at discharge. We recommend that you discuss this with your PCP for continued monitoring and management. A copy of your hospital discharge note will be sent to your PCP. If you have any worsening of symptoms, including nausea/vomiting or intractable abdominal pain please call your PCP or return to the hospital for further evaluation. Pending Studies at Discharge: No Stand-Alone Forms: My [facility], Smoking Cessation Medications and DC Order Prescriptions: New famotidine 20 mg tablet 20 mg PO DAILY PRN (Reason: acid reflux) Qty: 30 RF: 0 Continued naproxen sodium [Aleve] 220 mg Tablet 220 mg PO Q12H PRN (Reason: Fever Or Pain) RF: 0 lorazepam 1 mg Tablet 1 mg PO TID PRN (Reason: stress) RF: 0 timolol maleate 0.5 % drops 1 drp OPB DAILY RF: 0 cholestyramine (with sugar) 4 gram powder in packet 1 ea PO QAM RF: 0 Discharge Orders: Discharge Order (Routine); Ordered 02/10/21 Ordered By: Олег Lewis/Other Patient Handouts: Low-Fiber Diet Admission Data Admit Date/Time: 02/03/21 17:19 Attending Provider: Ayush Carr Admit Provider: Fede Black Primary Care Provider: Curt Sanches Other Providers: Fede Black ; Miles Driver. Other Interventions: Discharge Summary Assessment (RN) Last Done: 02/10/21 10:58 Supervising Physician Co-Signing Physician Notes I personally examined the patient and verified all bernard points of history and exam, discussed case, and agree with decision making with Dr Ledesma. Feeling better. Eating better. Feels up to going home. Vitals noted, in general she is awake and alert pleasant no distress. HEENT normocephalic atraumatic mucous membranes are moist. Breathing unlabored no accessory muscle use good effort. Skin shows no rashes no pallor or icterus. Small bowel obstructionadhesionalimproving. Tolerating diet well enough to go home. Diarrheamultifactorial. Resume cholestyramine. Safe for home. otherwise as above Resident Activity Tracking Resident Involvement: Resident Care Provided Care Provided: Adult Hospital Medicine
--- NOTE | 2021-02-10 10:35 | Surgery Progress Note ---
Date of Service February 10, 2021 Assessment & Plan (1) Small bowel obstruction: Plan: -She is tolerating a diet without emesis -Would continue her low fiber diet and as long as she is able to have small meals without emesis and continues to have bowel function she can be discharged from surgical standpoint -I would have her follow up with her colorectal surgeon in [place] upon discharge as in some cases they are able to dilate the anastomosis endoscopically for some relief -Please call back with questions or concerns Admission and Anticipated Discharge Date Admission Date: February 03, 2021 Subjective Pt seen and examined. Feeling great. NO N/V with regular diet. +BM's and flatus. No abdominal pain. Review of Systems Constitutional: no fever and no chills Physical Exam Gastrointestinal (Abdomen): Inspection/Auscultation: abdomen not distended Percussion/Palpation: abdomen soft; abdomen nontender Results & Data ([facility]) Vital Signs (Past 12 Hours) Vital Signs Temp Pulse Resp BP Pulse Ox 02/10/21 07:24 36.8 C 84 18 134/81 96 02/09/21 23:05 36.2 C L 73 15 141/80 H 98 PG Care Time/CCT Total # of Minutes Spent Total Time Spent with Patient: Total time spent is greater than 50% in coordination of care (as documented) at patient's floor/unit and/or counseling patient: Coding Level of Care Code 91035 Subseq Hosp Care Lvl 1 Diagnoses Small bowel obstruction K56.609
--- NOTE | 2021-02-10 18:37 | Billing Data ---
Date of Service February 10, 2021 Coding Level of Care Code D/C DAY MANAGEMENT <30 MINS
== END 2021-02-10 14:31 | disposition home or self-care (01) | DRG 394 ==
LOC: ED 12:11 → 3W 17:19 → SUATTDRO 17:19 → 3W 20:21
DX: D72.829 Elevated white blood cell count, unspecified; Z88.8 Allergy status to other drugs, medicaments and biological substances; D72.819 Decreased white blood cell count, unspecified; K21.9 Gastro-esophageal reflux disease without esophagitis; Z15.09 Genetic susceptibility to other malignant neoplasm; D50.9 Iron deficiency anemia, unspecified; Z90.49 Acquired absence of other specified parts of digestive tract; Z88.5 Allergy status to narcotic agent; K52.89 Other specified noninfective gastroenteritis and colitis; Z98.890 Other specified postprocedural states; K63.9 Disease of intestine, unspecified; K90.9 Intestinal malabsorption, unspecified; K44.9 Diaphragmatic hernia without obstruction or gangrene; K91.89 Other postprocedural complications and disorders of digestive system; Z85.038 Personal history of other malignant neoplasm of large intestine; K56.50 Intestinal adhesions [bands], unspecified as to partial versus complete obstruction; Z91.018 Allergy to other foods